=== PATIENT | female | born 1990 | race Caucasian/White ===

== ENCOUNTER 2017-09-28 22:23 | Emergency (ER) | payer OTHER ==
[~2017-09-28] VITALS: Ht 185.4 cm; Wt 74.8 kg
[~2017-09-28 22:23] MED LIST: ACET325 PO; ALBU90I INH; ALBU90OI INH; ALBU90OI6 INH; AMOX50SU PO; BC PATCH; BENADRYL PRN; BENZ100A PO; BIRTH CONTROL PATCH; CETI5 PO; CLOT1TC TOP; CODACEE120 PO; CODGUAEL PO; CRUTCH4 USE; CYCL10 PO; Cleocin HCl300 MG PO; DIPH50 PO; HYDACE5 PO; HYDHCL25 PO; IBUP800; IBUP800 PO; LORA10ER PO; NAPR500 PO; Norco 5-325 Ta1 EACH PO; ONDA8ODT MM; OXYACE5T; OXYACE5T PO; PENVK500 PO; PERM5TC TOP; PHENA100 PO; PRED10 PO; PRED20 PO; PROM25 PO; Prilosec20 MG PO; RXALBOI INH; RXPHEN200 PO; RXSULTRIDS PO; SULTRIDS PO; TRAM50 PO; Verotin-Gr Cap1 EACH; Verotin-Gr Cap1 EACH PO; Zithromax250 MG PO; Zofran8 MG PO
[2017-09-28 23:07] LABS: Source, Urine Clean Catch
[2017-09-28 23:14] LABS: Bilirubin, Urine Neg (Neg); Blood, Urine 5+ (Neg); Glucose Qualitative, Urine Neg (Neg); Ketones, Urine Neg (Neg); Leukocyte Esterase, Urine Neg (Neg); Nitrite, Urine Neg (Neg); Protein, Urine Neg (Neg); Specific Gravity, Urine 1.015 (1.003-1.022); Urobilinogen, Urine NORM (Normal)
[2017-09-29 00:27] LABS: Amorphous Mod (0-Heavy); Appearance, Urine Turbid (Clear); Bacteria Few /hpf; Color, Urine Yellow (P-Yellow); Mucus Mod (0-Heavy); Squamous Epithelial Cells Few /hpf (Few); White Blood Cells, Urine 0-2 /hpf (0-5)
[2017-09-29] MEDS ORDERED: Cyclobenzaprine5 MG PO (00:57)
[2017-09-29] MEDS ORDERED: Ultram50 MG PO (00:57)
== END 2017-09-29 01:48 | disposition home or self-care (01) ==
LOC: ER 22:23
PROVIDERS: Emergency Medicine
DX: M54.5 Low back pain (principal); Z88.6 Allergy status to analgesic agent; Z79.891 Long term (current) use of opiate analgesic; Z79.899 Other long term (current) drug therapy; J45.909 Unspecified asthma, uncomplicated; F17.200 Nicotine dependence, unspecified, uncomplicated
CPT/HCPCS: 74176; 81001; 81025; 99284

== ENCOUNTER 2019-01-26 23:56 | Emergency (ER) | payer OTHER ==
[~2019-01-26] VITALS: Ht 180.3 cm; Wt 77.1 kg
[~2019-01-26 23:56] MED LIST changes: +Cyclobenzaprine5 MG PO; +Ultram50 MG PO
[2019-01-27] MEDS ORDERED: Zithromax250 MG PO (03:29)
== END 2019-01-27 04:00 | disposition home or self-care (01) ==
LOC: ER 23:56
DX: R05 Cough (principal); F17.210 Nicotine dependence, cigarettes, uncomplicated
CPT/HCPCS: 81025; 94640

== ENCOUNTER → 2019-03-15 | Outpatient (CLI) | payer OTHER ==
[~2019-03-15] MED LIST changes: +Amoxicillin500 MG PO; +Cetirizine HCl10 MG PO; +PRENATAL VITAM1 EAC1 PO; +Ventolin/Prove6.7 GM INH
[2019-03-21 03:06] LABS: CHLAMYDIA BY NAA Negative (Negative); GONOCOCCUS BY NAA Negative (Negative); HPV 16 Negative (Negative); HPV 18 Negative (Negative); HPV OTHER HR TYPES Positive (Negative); TRICH VAG BY NAA Negative (Negative)
== END | disposition home or self-care (01) ==
LOC: LAB SHORT 14:02 → LAB 14:02
PROVIDERS: Obstetrics & Gynecology
DX: Z36.89 Encounter for other specified antenatal screening (principal)
CPT/HCPCS: 87491; 87591; 87624; 87625; 87661; G0123

== ENCOUNTER 2019-04-24 03:39 | Emergency (ER) | payer OTHER ==
[~2019-04-24] VITALS: Ht 177.8 cm; Wt 83.0 kg
[~2019-04-24 03:39] MED LIST changes: -Amoxicillin500 MG PO; -Cetirizine HCl10 MG PO; -PRENATAL VITAM1 EAC1 PO; -Ventolin/Prove6.7 GM INH
[2019-04-24 04:28] LABS: BASOPHILS ABSOLUTE AUTO 0.04 K/mm3 (0.00-0.23); BASOPHILS PERCENT AUTO 1 % (0-2); EOSINOPHILS ABSOLUTE AUTO 0.46 K/mm3 (0.00-0.68); EOSINOPHILS PERCENT AUTO 6 % (0-6); Hematocrit 38.9 % (33.0-51.0); Hemoglobin 12.9 g/dL (11.5-16.0); IMMATURE GRAN ABSOLUTE AUTO 0.03 K/mm3 (0.00-0.10); IMMATURE GRAN PERCENT AUTO 0 % (0-1); LYMPHOCYTES ABSOLUTE AUTO 3.05 K/mm3 (0.84-5.20); LYMPHOCYTES PERCENT AUTO 37 % (21-46); MONOCYTES ABSOLUTE AUTO 0.48 K/mm3 (0.16-1.47); MONOCYTES PERCENT AUTO 6 % (4-13); Mean Corpuscular HGB 28.9 pg (26.0-34.0); Mean Corpuscular HGB Conc 33.2 g/dL (31.5-36.5); Mean Corpuscular Volume 87 fL (80-100); Mean Platelet Volume 10.3 fL (9.1-12.4); NEUTROPHILS ABSOLUTE AUTO 4.21 K/mm3 (1.96-9.15); NEUTROPHILS PERCENT AUTO 51 % (41-73); Platelet Count 322 K/mm3 (150-400); RDW Coefficient Variation 13.7 % (11.7-14.2); RDW Standard Deviation 43.5 fL (35.1-46.3); Red Blood Cell Count 4.46 M/mm3 (3.80-5.20); White Blood Cell Count 8.27 K/mm3 (4.00-11.30)
[2019-04-24 04:44] LABS: Source, Urine Clean Catch
[2019-04-24 04:45] LABS: Alanine Aminotransfer (ALT/SGP 20 U/L (12-78); Albumin, Blood 2.9 g/dL (3.4-5.0); Albumin/Globulin Ratio 0.6 (0.8-1.8); Alk Phos 79 U/L (50-136); Anion Gap 9 mmol/L (6-16); Aspartate Aminotrans (AST/SGOT 19 U/L (12-37); Bilirubin, Total 0.1 mg/dL (0.1-1.0); Blood Urea Nitrogen 6 mg/dL (8-24); Bun/Creatinine Ratio 10.6 (12.0-20.0); CO2, Blood 22 mmol/L (21-32); Calcium, Blood 8.5 mg/dL (8.5-10.1); Chloride, Blood 107 mmol/L (98-108); Creatinine, Blood 0.57 mg/dL (0.40-1.00); Globulin, Blood 4.5 g/dL (2.2-4.0); Glomerular Filtration Rate >60 (60-); Glucose, Blood 84 mg/dL (70-99); Potassium, Blood 4.2 mmol/L (3.5-5.5); Sodium, Blood 138 mmol/L (136-145); Total Protein, Blood 7.4 g/dL (6.4-8.2)
[2019-04-24] MEDS ORDERED: Ventolin/Prove6.7 GM INH (04:46)
[2019-04-24] MEDS ORDERED: PRENATAL VITAM1 EAC1 PO (04:46)
[2019-04-24] MEDS ORDERED: Amoxicillin500 MG PO (04:46)
[2019-04-24] MEDS ORDERED: Cetirizine HCl10 MG PO (04:46)
[2019-04-24 04:48] LABS: Bilirubin, Urine Neg (Neg); Blood, Urine Neg (Neg); Glucose Qualitative, Urine Neg (Neg); Ketones, Urine 1+ (Neg); Leukocyte Esterase, Urine Neg (Neg); Nitrite, Urine Neg (Neg); Protein, Urine 2+ (Neg); Urobilinogen, Urine NORM (Normal)
[2019-04-24 05:02] LABS: Appearance, Urine Hazy (Clear); Bacteria Rare /hpf; Color, Urine Yellow (P-Yellow); Red Blood Cells, Urine Not Seen /hpf (0-2); Squamous Epithelial Cells Few /hpf (Few); White Blood Cells, Urine Rare /hpf (0-5)
[2019-04-24 05:03] LABS: Amorphous Light ({null, 0-Heavy}); Mucus Light ({null, 0-Heavy}); Uric Acid Crystals Many /hpf
== END 2019-04-24 05:54 | disposition home or self-care (01) ==
LOC: ER 03:39
PROVIDERS: Emergency Medicine
DX: O99.89 Other specified diseases and conditions complicating pregnancy, childbirth and the puerperium (principal); R10.84 Generalized abdominal pain; O99.332 Smoking (tobacco) complicating pregnancy, second trimester; F17.210 Nicotine dependence, cigarettes, uncomplicated; Z88.5 Allergy status to narcotic agent; Z79.899 Other long term (current) drug therapy; O99.512 Diseases of the respiratory system complicating pregnancy, second trimester; J45.909 Unspecified asthma, uncomplicated; Z3A.19 19 weeks gestation of pregnancy
CPT/HCPCS: 76816; 80053; 81001; 85025; 96360; 99284-25; J7030

== ENCOUNTER → 2019-09-01 | Outpatient (CLI) | payer OTHER ==
[~2019-09-01] MED LIST changes: +Amoxicillin500 MG PO; +Cetirizine HCl10 MG PO; +PRENATAL VITAM1 EAC1 PO; +SERT25 PO; +Ventolin/Prove6.7 GM INH
== END | disposition home or self-care (01) ==
LOC: LAB 10:55 → LAB SHORT 10:55
DX: Z34.93 Encounter for supervision of normal pregnancy, unspecified, third trimester (principal)
CPT/HCPCS: 87081; 87653

== ENCOUNTER 2019-09-19 20:19 | Inpatient (IN) | payer OTHER ==
[~2019-09-19] VITALS: Ht 180.3 cm; Wt 87.7 kg
[~2019-09-19 20:19] MED LIST changes: -SERT25 PO
[2019-09-19 20:52] LABS: BASOPHILS ABSOLUTE AUTO 0.03 K/mm3 (0.00-0.23); BASOPHILS PERCENT AUTO 0 % (0-2); EOSINOPHILS ABSOLUTE AUTO 0.23 K/mm3 (0.00-0.68); EOSINOPHILS PERCENT AUTO 3 % (0-6); Hematocrit 39.4 % (33.0-51.0); Hemoglobin 12.6 g/dL (11.5-16.0); IMMATURE GRAN ABSOLUTE AUTO 0.02 K/mm3 (0.00-0.10); IMMATURE GRAN PERCENT AUTO 0 % (0-1); LYMPHOCYTES ABSOLUTE AUTO 2.58 K/mm3 (0.84-5.20); LYMPHOCYTES PERCENT AUTO 38 % (21-46); MONOCYTES ABSOLUTE AUTO 0.57 K/mm3 (0.16-1.47); MONOCYTES PERCENT AUTO 8 % (4-13); Mean Corpuscular HGB 27.1 pg (26.0-34.0); Mean Corpuscular Volume 85 fL (80-100); Mean Platelet Volume 10.9 fL (9.1-12.4); NEUTROPHILS ABSOLUTE AUTO 3.44 K/mm3 (1.96-9.15); NEUTROPHILS PERCENT AUTO 50 % (41-73); Platelet Count 294 K/mm3 (150-400); RDW Coefficient Variation 15.7 % (11.7-14.2); Red Blood Cell Count 4.65 M/mm3 (3.80-5.20); White Blood Cell Count 6.87 K/mm3 (4.00-11.30)
[2019-09-21 05:33] LABS: Hematocrit 36.1 % (33.0-51.0); Hemoglobin 11.4 g/dL (11.5-16.0); Mean Corpuscular HGB 26.6 pg (26.0-34.0); Mean Corpuscular HGB Conc 31.6 g/dL (31.5-36.5); Mean Corpuscular Volume 84 fL (80-100); Mean Platelet Volume 11.2 fL (9.1-12.4); Platelet Count 261 K/mm3 (150-400); RDW Coefficient Variation 15.6 % (11.7-14.2); RDW Standard Deviation 47.3 fL (35.1-46.3); Red Blood Cell Count 4.28 M/mm3 (3.80-5.20); White Blood Cell Count 12.03 K/mm3 (4.00-11.30)
[2019-09-21] MEDS ORDERED: IBUP800 (12:09)
[2019-09-21] MEDS ORDERED: SERT25 PO (12:10)
== END 2019-09-22 11:30 | disposition home or self-care (01) | DRG 807 ==
LOC: BC 20:19
PROVIDERS: ADMIT Obstetrics & Gynecology
PROC: 3E0P7VZ Introduction of Hormone into Female Reproductive, Via Natural or Artificial Opening (ICD-10-PCS; 2019-09-19)
PROC: 10E0XZZ Delivery of Products of Conception, External Approach (ICD-10-PCS; principal; 2019-09-20)
PROC: 10907ZC Drainage of Amniotic Fluid, Therapeutic from Products of Conception, Via Natural or Artificial Opening (ICD-10-PCS; 2019-09-20)
PROC: 3E033VJ Introduction of Other Hormone into Peripheral Vein, Percutaneous Approach (ICD-10-PCS; 2019-09-20)
PROC: 3E0R3BZ Introduction of Anesthetic Agent into Spinal Canal, Percutaneous Approach (ICD-10-PCS; 2019-09-20)
PROC: 3E0234Z Introduction of Serum, Toxoid and Vaccine into Muscle, Percutaneous Approach (ICD-10-PCS; 2019-09-22)
PROC: 3E0234Z Introduction of Serum, Toxoid and Vaccine into Muscle, Percutaneous Approach (ICD-10-PCS; 2019-09-22)
DX: O24.420 Gestational diabetes mellitus in childbirth, diet controlled (principal); Z37.0 Single live birth; Z3A.39 39 weeks gestation of pregnancy; Z86.59 Personal history of other mental and behavioral disorders; O99.334 Smoking (tobacco) complicating childbirth; F17.210 Nicotine dependence, cigarettes, uncomplicated; Z23 Encounter for immunization
CPT/HCPCS: 36415; 51702; 82947; 85025; 85027; 86900; 86901; 90471; 90686; 90707; A9270; J1200; J1885; J2001; J2210; J2590; J3010; J7030; J7120

== ENCOUNTER 2019-10-24 07:30 | Day surgery (SDC) | payer OTHER ==
[~2019-10-24] VITALS: Ht 175.3 cm; Wt 76.1 kg
[~2019-10-24 07:30] MED LIST changes: +PRENATAL PO; +SERT25 PO
--- NOTE | 2019-10-24 08:03 | NUR ---
History, Chart, Medications and Allergies reviewed before start of procedure. Patient confirms NPO status and agrees with scheduled surgery. Patient States Post-Procedure ride home has been arranged with her .
--- NOTE | 2019-10-24 08:04 | NUR ---
Faint exp. wheezes auscultated to RLL posterior.
--- NOTE | 2019-10-24 11:56 | NUR ---
RECEIVED PT VIA GURJORGE LUIS FROM PACU. VSS. PT GROOGY, AX0 X3. PT TOLERTING ORAL FLUIDS. AT BEDSIDE.
--- NOTE | 2019-10-24 12:11 | NUR ---
PT STATED "I FEEL LIKE I'M GOING TO FAINT." PT LAID BACK IN [facility]. PT STATED NASAL CANNULA WAS IRRITATING HER NOSE. NON REBREATHER APPLIED. O2 95%. PT RESTING WITH EYES CLOSED.
--- NOTE | 2019-10-24 14:14 | NUR ---
PT DRESSED, AMBULATED WITH NURSE ASSIST TO RESTROOM AND BACK. POSITIVE VOID. PT'S BROUGHT LUNCH AND PT IS SITTING IN BED EATING.
--- NOTE | 2019-10-24 14:14 | NUR ---
LATE ENTRY 1300 PT PUMPED WITH PUMP BROUGHT FROM FAMILY [employer]AC[facility]. PT TOLERATED WELL.
--- NOTE | 2019-10-24 14:37 | NUR ---
PT WITH C/O CHEST TIGHTNESS AND NOT BEING "ABLE TO TAKE A DEEP BREATH." CONSULTED DR. ABDI AND HE ORDERED 1 MG ATIVAN TO BE GIVEN IV NOW. PT TOLERATED WELL.
--- NOTE | 2019-10-24 14:42 | NUR ---
PT RESTING WITH EYES CLOSED. ROOM AIR 02 97%. AT BEDSIDE.
--- NOTE | 2019-10-24 15:30 | NUR ---
Discharge instructions reviewed with patient. Patient verbalizes understanding. Copy given to patient to take home. Discharged via wheelchair to private car for ride home. PT MEETS CRITERIA FOR DC.
== END 2019-10-24 15:23 | disposition home or self-care (01) ==
LOC: ORSCMMR 07:30 → ORD 09:00 → ORSCMMR 15:23
PROVIDERS: Obstetrics & Gynecology
PROC: 0UT74ZZ Resection of Bilateral Fallopian Tubes, Percutaneous Endoscopic Approach (ICD-10-PCS; principal; 2019-10-24 09:00)
DX: Z30.2 Encounter for sterilization (principal); F17.210 Nicotine dependence, cigarettes, uncomplicated; J45.909 Unspecified asthma, uncomplicated
CPT/HCPCS: 88302; J0330; J2060; J2250; J2405; J2704; J3010; J7120

== ENCOUNTER 2019-11-08 05:16 | Inpatient (IN) | payer OTHER ==
[~2019-11-08] VITALS: Ht 177.8 cm; Wt 79.2 kg
[2019-11-08 05:35] LABS: BASOPHILS ABSOLUTE AUTO 0.04 K/mm3 (0.00-0.23); BASOPHILS PERCENT AUTO 0 % (0-2); EOSINOPHILS ABSOLUTE AUTO 0.54 K/mm3 (0.00-0.68); EOSINOPHILS PERCENT AUTO 5 % (0-6); Hemoglobin 12.6 g/dL (11.5-16.0); IMMATURE GRAN ABSOLUTE AUTO 0.05 K/mm3 (0.00-0.10); IMMATURE GRAN PERCENT AUTO 1 % (0-1); LYMPHOCYTES ABSOLUTE AUTO 5.64 K/mm3 (0.84-5.20); LYMPHOCYTES PERCENT AUTO 52 % (21-46); MONOCYTES PERCENT AUTO 6 % (4-13); Mean Corpuscular HGB 27.5 pg (26.0-34.0); Mean Corpuscular HGB Conc 31.5 g/dL (31.5-36.5); Mean Platelet Volume 9.5 fL (9.1-12.4); NEUTROPHILS ABSOLUTE AUTO 3.91 K/mm3 (1.96-9.15); NEUTROPHILS PERCENT AUTO 36 % (41-73); Platelet Count 333 K/mm3 (150-400); RDW Standard Deviation 51.2 fL (35.1-46.3); Red Blood Cell Count 4.59 M/mm3 (3.80-5.20); White Blood Cell Count 10.78 K/mm3 (4.00-11.30)
[2019-11-08 05:38] LABS: PCO2 Arterial 80.7 mmHg (35-45); PO2 Arterial 280 mmHg (80-100)
[2019-11-08 05:39] LABS: Mean Corpuscular Volume 87 fL (80-100)
[2019-11-08 05:51] LABS: Alanine Aminotransfer (ALT/SGP 20 U/L (12-78); Albumin, Blood 2.9 g/dL (3.4-5.0); Anion Gap 5 mmol/L (6-16); Aspartate Aminotrans (AST/SGOT 23 U/L (12-37); Bilirubin, Total 0.1 mg/dL (0.1-1.0); Blood Urea Nitrogen 14 mg/dL (8-24); Bun/Creatinine Ratio 16.1 (12.0-20.0); CO2, Blood 27 mmol/L (21-32); Calcium, Blood 7.7 mg/dL (8.5-10.1); Chloride, Blood 111 mmol/L (98-108); Creatinine, Blood 0.87 mg/dL (0.40-1.00); Glomerular Filtration Rate >60 (60-); Glucose, Blood 210 mg/dL (70-99); Potassium, Blood 4.4 mmol/L (3.5-5.5); Sodium, Blood 143 mmol/L (136-145)
[2019-11-08 05:55] LABS: Albumin/Globulin Ratio 0.8 (0.8-1.8); Alk Phos 126 U/L (50-136); Globulin, Blood 3.5 g/dL (2.2-4.0); Total Protein, Blood 6.4 g/dL (6.4-8.2); Troponin I <0.015 ng/mL (0.000-0.040)
[2019-11-08 07:01] LABS: Source, Urine Catheter
[2019-11-08 07:03] LABS: Appearance, Urine Clear (Clear); Bilirubin, Urine Neg (Neg); Blood, Urine Neg (Neg); Color, Urine Yellow (P-Yellow); Glucose Qualitative, Urine Neg (Neg); Ketones, Urine Neg (Neg); Leukocyte Esterase, Urine Neg (Neg); Nitrite, Urine Neg (Neg); Protein, Urine 2+ (Neg); Specific Gravity, Urine 1.025 (1.003-1.022); Urobilinogen, Urine NORM (Normal)
[2019-11-08 07:12] LABS: Red Blood Cells, Urine 0-2 /hpf (0-2); Squamous Epithelial Cells Not Seen /hpf (Few); White Blood Cells, Urine 0-2 /hpf (0-5)
[2019-11-08 07:13] LABS: Amorphous Mod (0-Heavy); Bacteria Mod /hpf
--- NOTE | 2019-11-08 09:11 | NUR ---
Received report from Sher RN. Patient arrived via gurney and on vent with 6.0 ET done in the field and 25cm at lips with settings AC 20, TV 400, FiO2 45% and now 25% Peep 5.0 and sats upper 90%'s. She has 18ga RFA dressing intact and site WNL's and is infusing Propofol 40 mcg/kg/min. She also has 20ga LAC dressing intact and site WNLK flushed and SL'd. She has 14Fr Soto draining to gravity clear yellow urine. She had small amount liquid stool on sheet when arrived and cleaned her up. She has had child in September and had spouse go home and bring her pump in and called family to have assessed as family stated she wanted to contiunue to breast feed after discharge. Talked with spouse and updated on plan.
--- NOTE | 2019-11-08 10:53 | NUR ---
Patient remains sedated on vent, she has been decreased to 25% and sats low to mid 90%'s. Lungs sounds are clear and do not sound tight anymore. She has occassional stacking of breaths with care and movement , but settles shortly after. VSS see EMR. Dr Ferris consulted.
[2019-11-08 11:16] LABS: Adenovirus Not Detected (NOT DETECT); Coronavirus 229E Not Detected (NOT DETECT); Coronavirus HKU1 Detected (NOT DETECT); Coronavirus NL63 Not Detected (NOT DETECT)
[2019-11-08 11:17] LABS: Bordetella pertussis Not Detected (NOT DETECT); Chlamydophila pneumoniae Not Detected (NOT DETECT); Coronavirus OC43 Not Detected (NOT DETECT); Human Metapneumovirus Not Detected (NOT DETECT); Human Rhinovirus/Enterovirus Not Detected (NOT DETECT); Influenza A Not Detected (NOT DETECT); Influenza A/2009-H1 Not Detected (NOT DETECT); Influenza A/H1 Not Detected (NOT DETECT); Influenza A/H3 Not Detected (NOT DETECT); Influenza B Not Detected (NOT DETECT); Mycoplasma pneumoniae Not Detected (NOT DETECT); Parainfluenza Virus 1 Not Detected (NOT DETECT); Parainfluenza Virus 2 Not Detected (NOT DETECT); Parainfluenza Virus 3 Not Detected (NOT DETECT); Parainfluenza Virus 4 Not Detected (NOT DETECT); Respiratory Syncytial Virus Not Detected (NOT DETECT)
--- NOTE | 2019-11-08 12:10 | NUR ---
Patient opens eyes to calling her name. Dr Ferris reduced AC to 12 and sats increased to 92-97%, and notified RT, VSS see EMR and no other significant changes. Awaiting to bring breast pump for patient and will notify family Place.
--- NOTE | 2019-11-08 14:43 | NUR ---
Patient doing well on AC 12, TV400, FiO2 25% and peep 5.0 with sats mid 90's. ABG in an hour. Mother came by and spouse brought breast pump and mother pumped both sides. VSS see EMR. Restraints remains in place and releasewd briefly for circulation and skin check and reapplied. She opens eye with verbal cues.
[2019-11-08 14:45] LABS: PCO2 Arterial 38.9 mmHg (35-45); pH Blood Arterial 7.35 (7.35-7.45)
--- NOTE | 2019-11-08 16:58 | NUR ---
INTUBATED IN ICU. WARD SECRETARY INSTRUCTED IN PUMP PROTOCOL TO MAINTAIN MILK SUPPLY, PUMPING EVERY 2-3 HOURS FOR 20 MIN. WARD SECRETARY INSTRUCTED ON HOW TO CLEAN PUMP AND HOW TO PUT PUMP PARTS TOGETHER.
--- NOTE | 2019-11-08 18:10 | NUR ---
Patient awaoke at 1600 and tried to extubate self and was not following directions and increased Propofl to 50 Mcg/kg/min and sedated well. She continues to raise eye brws when calling her name. [facility] [place] lactate RN's came up and cleaned her equipment and changed bottles and suction cups. They stated to wash her breast pump equipment in supplied dish washing soap and dry. She needs to be pumped every three hours. They were able to get three ounces total from both breasts and was disgarded. patient has been restinging comfortably.
--- NOTE | 2019-11-08 18:13 | NUR ---
No family present at time of visit. Pt unable to participate in conversation. Per admit trigger, I was tasked with providing ACP information to pt. Left information on bedside table and will remain available to pt and family.
[2019-11-08 19:38] LABS: Source, Urine Catheter
[2019-11-08 19:41] LABS: Bilirubin, Urine Neg (Neg); Blood, Urine 3+ (Neg); Glucose Qualitative, Urine Neg (Neg); Ketones, Urine Neg (Neg); Leukocyte Esterase, Urine Neg (Neg); Nitrite, Urine Neg (Neg); Protein, Urine Neg (Neg); Urobilinogen, Urine NORM (Normal)
[2019-11-08 19:50] LABS: Color, Urine Pale Yellow (P-Yellow)
[2019-11-08 19:53] LABS: Appearance, Urine Clear (Clear); Bacteria Rare /hpf; Squamous Epithelial Cells Rare /hpf (Few); White Blood Cells, Urine 0-2 /hpf (0-5)
[2019-11-08 19:54] LABS: Uric Acid Crystals Few /hpf
--- NOTE | 2019-11-08 20:39 | NUR ---
ASSUMED CARE OF PT AT 1900. PT EASILY ROUSABLE ON VENT, SETTINGS 12RR/ 400 TV/ PEEP 5/ 25% FIO2. PUMPED PT FOR 40ML BREAST MILK WITH OFFGOING ALYSSA MAYES. BEDSIDE REPORT GIVEN AT SAME TIME. I-TRACE PERFORMED. U/A RETRIEVED AND SENT AT SAME TIME.
[2019-11-09 03:31] LABS: BASOPHILS ABSOLUTE AUTO 0.01 K/mm3 (0.00-0.23); BASOPHILS PERCENT AUTO 0 % (0-2); EOSINOPHILS PERCENT AUTO 0 % (0-6); Hematocrit 35.5 % (33.0-51.0); Hemoglobin 11.4 g/dL (11.5-16.0); IMMATURE GRAN ABSOLUTE AUTO 0.02 K/mm3 (0.00-0.10); IMMATURE GRAN PERCENT AUTO 0 % (0-1); LYMPHOCYTES ABSOLUTE AUTO 0.94 K/mm3 (0.84-5.20); LYMPHOCYTES PERCENT AUTO 11 % (21-46); MONOCYTES ABSOLUTE AUTO 0.15 K/mm3 (0.16-1.47); MONOCYTES PERCENT AUTO 2 % (4-13); Mean Corpuscular HGB Conc 32.1 g/dL (31.5-36.5); Mean Corpuscular Volume 84 fL (80-100); Mean Platelet Volume 9.6 fL (9.1-12.4); NEUTROPHILS ABSOLUTE AUTO 7.74 K/mm3 (1.96-9.15); NEUTROPHILS PERCENT AUTO 87 % (41-73); Platelet Count 273 K/mm3 (150-400); RDW Coefficient Variation 16.8 % (11.7-14.2); RDW Standard Deviation 51.5 fL (35.1-46.3); Red Blood Cell Count 4.23 M/mm3 (3.80-5.20); White Blood Cell Count 8.86 K/mm3 (4.00-11.30)
[2019-11-09 03:51] LABS: Alanine Aminotransfer (ALT/SGP 18 U/L (12-78); Albumin/Globulin Ratio 0.9 (0.8-1.8); Alk Phos 116 U/L (50-136); Anion Gap 5 mmol/L (6-16); Aspartate Aminotrans (AST/SGOT 18 U/L (12-37); Bilirubin, Total 0.3 mg/dL (0.1-1.0); Blood Urea Nitrogen 15 mg/dL (8-24); Bun/Creatinine Ratio 21.8 (12.0-20.0); CO2, Blood 24 mmol/L (21-32); Calcium, Blood 8.1 mg/dL (8.5-10.1); Chloride, Blood 112 mmol/L (98-108); Creatinine, Blood 0.69 mg/dL (0.40-1.00); Globulin, Blood 3.3 g/dL (2.2-4.0); Glomerular Filtration Rate >60 (60-); Glucose, Blood 142 mg/dL (70-99); Magnesium, Blood 2.1 mg/dL (1.6-2.4); Phosphorus, Blood 3.4 mg/dL (2.5-4.9); Potassium, Blood 4.2 mmol/L (3.5-5.5); Sodium, Blood 141 mmol/L (136-145); Total Protein, Blood 6.3 g/dL (6.4-8.2)
--- NOTE | 2019-11-09 06:27 | NUR ---
PT BECAME RESTLESS WHENEVER SHE WAS TURNED OR HAD HER BREASTS PUMPED. PT WAS CHEWING ON HER ET TUBE. HER VENT SETTINGS ARE THE SAME BEGINNING SHIFT, AC 12 RR/ 400 TV/ PEEP 5/ 25% FIO2. PT HAD TRANSITORY WHEEZE IN LUNGS, THAT WERE GONE A FEW MINUTES LATER. AT THAT TIME, HER O2 SAT DROPPED TO 90%, THEN RECOVERED.
--- NOTE | 2019-11-09 07:30 | NUR ---
Received report from Mary Grace MAYES. Patient HOB at 30 degrees and intubated with 6.0 ET and 26 cm at lips and vent settings AC 12, TV 400, FiO2 30%, PEEP 5.0 and sats mid 90%'s. She is sedated on 70mcg/kg/min of Propofol as it was increased when she awoke and tried to extubate herself on Noc shift. She has 18ga IV RFA dressing intact and site WNL's and is infusing Propofol and NS at 50ml/hr. She has OG in place with Vital High Protien at 10ml/hr with 30ml/hr water flushes. She has been have breast pumping q3 and just finished left 1.5 oz and right 2 oz.
--- NOTE | 2019-11-09 09:30 | NUR ---
Patient extubated at 0920 while on 30 mcg/kg/min as to not set her off for another attack and she did well and after extubation Propofol was turned off and she slowly awoke. We placed her on 6L NC and sats low 90%'s. She has 14Fr Folet draining cloudy yellow urine to gravity. She has great cough and able to clear secretions.
--- NOTE | 2019-11-09 11:30 | NUR ---
Soto removed and sluids stopped as she is having oral intake. Her HR since extubation 130-150's and Dr Ferris notified. She still has residual affects from sedations and she remains a little word salad when talking. Family has been in and out of room all morning. Dr De Luna has been in and taked with patient and ordered her regular diet. patient assisted with breast pumping 2nd time and continues to get about 2 oz's from each breast.
--- NOTE | 2019-11-09 13:30 | NUR ---
Got patient up out of bed with one person assist to bathroom she was able to urinate since cordova removed. She is getting more alert and is able to communicate her needs. VSS See EMR. She tolerated luch 100% and is drinking fluids per request.
--- NOTE | 2019-11-09 15:44 | NUR ---
Patient has been sitting up in bed and has been on and off of phone for the last three hours and remains on 6L O2 via NC and sats low to mid 90%'s. She pumped at 1345 and mostly did by her self with minimal assistance and about same amount all breast milk has been thrown away as r/t meds that she has been on and has to wait 24 hours before retaining. She is trying to rest.
--- NOTE | 2019-11-09 18:43 | NUR ---
Patient has been PCU status and has been up with assist several times to urinate. We placed her back on IV fluids to help with increasing milk production and called to family place and got Mothers Milk Tea to help as well. She has been drinking but not her normal intake. She has been managing her breast pumping but get emotional when not getting enough. I called Kylah Higuera earlier as a recommendation from Dr De Luna and Dr Kylah Higuera stated to try Prozac and recieved order from Dr Ferris and started her on it. She has remained on 6L O2 via NC and sats low to mid 90%'s. She should go home tomorrow.
--- NOTE | 2019-11-09 21:20 | NUR ---
PT RESTING IN BED EATING DINNER BROUGHT IN BY FAMILY. PT IS A/O X4, USING CALL LIGHT APPROPRIATELY. PT IS PUMPING BREAST MILK. SHE IS ALMOST 2 MONTHS POST . ABLE TO PUMP BY HERSELF. PT IS TEARFUL AT TIMES DUE TO DECREASED MILK FLOW. SHE WAS ONLY ABLE TO GET 2 OZ WHERE SHE IS NORMALLY ABLE TO GET 4 OZ. PT IS DRINKING FLUID AND IS ON NS AT 100ML/HR TO TRY TO HELP. NO SIGN OF DISTRESS.
--- NOTE | 2019-11-10 06:03 | NUR ---
SUMMARY PT DID WELL THROUGH THE NIGHT. PUMPED Q 3HRS AND MILK PRODUCTION HAS IMPROVED. PT HAS BEEN GETTING UP TO BATHROOM WITHOUT ISSUE. C/O SORE ABS THIS AM AND REQUESTING IBUPROFEN. CALLED HOSPITALIST WHO GAVE ORDERS. NO SIGN OF DISTRESS THIS AM. CALL LIGHT IN REACH, AT BEDSIDE.
--- NOTE | 2019-11-10 08:00 | NUR ---
INITIAL ASSESSMENT PATIENT ALERT AND ORIENTED X 4, AFEBRILE. PATIENT ANXIOUS AT TIMES. PATIENT COOPERATIVE. PATIENT SBA TO TOILET. PATIENT DENIES PAIN. LUNG SOUNDS COARSE AND WHEEZY THROUGHOUT. PATIENT SATTING 90% AND GREATER ON 4 L NC. PATIENT SOB WITH EXERTION. PATIENT COUGHING UP LARGE AMOUNT OF THICK, YELLOW SPUTUM. PATIENT IN SR TO ST, HR 90S TO 120S. BP STABLE. PULSES STRONG. GI AND WNL. SCATTERED BRUISES NOTED T/O. IV FLUSHED AND SALINE LOCKED. BED LOW, CALL LIGHT IN REACH. WILL CONTINUE TO MONITOR PATIENT FREQUENTLY THROUGHOUT SHIFT.
--- NOTE | 2019-11-10 09:00 | NUR ---
DR. ADAMES INFORMED THAT PATIENT COUGHING UP LARGE AMOUNTS OF THICK, YELLOW SPUTUM THIS AM. INFORMED THAT PATIENT ON RA AT HOME AND THAT ON 4 L NC THIS AM. INFORMED THAT PATIENT WONDERING WHEN BREAST MILK WILL BE OKAY TO KEEP SINCE SHE WAS ON PROPOFOL DRIP WHEN INTUBATED. INFORMED THAT PATIENT REPORTED HAVING DIFFICULTY AT HOME BREATHING SINCE THE LAST TIME SHE WAS INTUBATED. INQUIRED ABOUT POSSIBLY FOLLOWING UP OUTPATIENT WITH ENT DOCTOR. NO ORDERS RECEIVED AT THIS TIME.
--- NOTE | 2019-11-10 10:36 | NUR ---
DR. MORRISON IN ROOM TO SEE PATIENT. UPDATED ON PATIENT STATUS. INFORMED THAT PATIENT ON 4 L NC THIS AM. INFORMED THAT PATIENT COUGHING UP LARGE AMOUNTS OF THICK, YELLOW SPUTUM THIS AM AFTER FLUTTER VALVE THERAPY. INFORMED THAT PATIENT SOB WITH EXERTION. INFORMED THAT PATIENT STATED SHE HAS HAD PROBLEMS WITH BREATHING AT HOME SINCE SHE WAS LAST INTUBATED AND THAT PATIENT DIFFICULT INTUBATION AND HAD TO HAVE 6.0 ETT. INQUIRED ABOUT ENT OUTPATIENT FOLLOW-UP BECAUSE OF THIS. NO ORDER RECEIVED THUS FAR.
--- NOTE | 2019-11-10 12:13 | NUR ---
PATIENT SATTING 90% AND GREATER ON RA, EVEN AFTER GETTING BACK FROM HAVING A HOT SHOWER. PATIENT STATES SHE IS BREATHING MUCH BETTER. TOOK PATIENT OUT IN WHEELCHAIR TO SIT IN SUN FOR 20 MINUTES.
--- NOTE | 2019-11-10 12:40 | NUR ---
PATIENT BACK FROM OUTSIDE TO SIT IN SUN. TOOK HER OUT IN WHEELCHAIR. REMAINS SATTING OVER 90% ON RA UPON RETURNING.
--- NOTE | 2019-11-10 13:00 | NUR ---
VSS. PATIENT HAS NO COMPLAINTS. PATIENT SATTING 90% AND GREATER ON RA. PATIENT REMAINS ST, HR IN LOW 100S. BP STABLE. PATIENT REMAINS COUGHING UP THICK, YELLOW SPUTUM BUT LESS THAN THIS AM. NO OTHER ACUTE CHANGES TO NOTE ON AT THIS TIME. WILL CONTINUE TO MONITOR.
--- NOTE | 2019-11-10 16:14 | NUR ---
SHIFT SUMMARY PATIENT REMAINED ALERT AND ORIENTED X 4, AFEBRILE. PATIENT ANXIOUS IN MORNING BUT HAS BEEN BETTER SINCE. PATIENT INDEPENDENT IN ROOM. PATIENT HAD COMPLAINT OF RIB PAIN OT FROM COUGHING; REPORTED RELIEF WITH PRN IBUPROFEN. PATIENT ON 4 L NC THIS AM. PATIENT HAS BEEN SATTING 90% AND GREATER ON RA SINCE. PATIENT COUGHING UP THICK, YELLOW SPUTUM. PATIENT HAS BEEN IN SR TO ST, HR 90S TO 120S. BP HAS REMAINED STABLE. PATIENT HAD LOOSE STOOLS THIS AM. PATIENT HAS BEEN TOLERATING REGULAR DIET WELL. WNL. NO CHANGE TO SKIN/ PATIENT HAS BEEN REPOSITIONING SELF IN BED. SPUTUM CULTURE SENT TO LAB. PATIENT HAD HOT SHOWER TODAY. PATIENT HAS BEEN PUMPING BREAST MILK THROUGHOUT DAY AND IT IS BEING STORED IN [facility] IN [facility]. NO COMPLAINTS AT THIS TIME. PATIENT IS BEING TRANSFERRED TO MEDICAL FLOOR, ROOM 358.
--- NOTE | 2019-11-10 16:38 | NUR ---
ICU TRANSFER- PT ARRIVED TO ROOM 358 VIA W/C AT 1620. PT UP INDEP IN ROOM. PT DENIES ANY COMPLAINTS. LS WITH FAINT EXP WHEEZE, MIN SOB WITH EXERTION, PT USING FLUTTER AT BEDSIDE AND REPORT THICK YELLOW SPUTUM, ON RA. PT REQUESTING TO GO OUTSIDE FOR FRESH AIR AND DENIES SMOKING. 18G TO [facility]-. PT ORIENTED TO ROOM AND CALL SYSTEM. CALL LIGHT IN REACH.
[2019-11-10] MEDS ORDERED: FENUGREEK500 MG PO (21:13)
--- NOTE | 2019-11-10 21:14 | NUR ---
HOME MEDS PT TAKING FENUGREEK DAILY AND DRINKING MOTHER'S MILK TEA TO ASSIST WITH HER MILK SUPPLY WHILE IN THE HOSPITAL. DR. FANG NOTIFIED THAT PT IS TAKING THESE SUPPLEMENTS. SHE STATES OK. NO ORDER IS NEEDED AND THAT PT CAN HAVE BOTH AT THE BEDSIDE.
--- NOTE | 2019-11-11 04:44 | NUR ---
SHIFT SUMMARY NO ACUTE CHANGES TO REPORT THIS SHIFT. PT HAS RESTED MOST OF THE NIGHT. NEW IV ESTABLISHED TO LEFT UPPER ARM THE PRIOR IV INFILTRATED. IV SOLUMDEROL CONTINUED PER ORDERS. PT CONTINUES TO HAVE HARSH PRODUCTIVE COUGH. SHE REPORTS THICK YELLOWISH SPUTUM. SHE HAS REMAINED INDEPENDENT IN THE ROOM. PT CONTINUES TO PUMP FREQUENTLY T/O SHIFT TO KEEP HER MILK SUPPLY UP. BREAST MILK CARRIED TO [facility] BY HAI ROBERTO. S/O AT BEDSIDE T/O THE NIGHT. BED IN LOWEST POSITION, CALL LIGHT WITHIN REACH. WILL CONTINUE TO MONITOR AND REPORT TO ONCOMING RN.
--- NOTE | 2019-11-11 19:19 | NUR ---
SHIFT SUMMARY- PT ALERT ORIENTED AND INDEPENDENT IN THE ROOM AND IN THE HALLS WITH A WC. PT HAS DENIED THE NEED FOR PAIN MEDICATION T/O THE DAY AND HAS RECIEVED SCHEDULED BREATHING Tx. PT IS POST 6 WEEKS, WITH HER PREVIOUS CHILD SHE "LOST HER MILK SUPPLY" AT AROUND 6 WEEKS POST . THIS IS CAUSING A LOT OF STRESS FOR THE PT AND SHE HAS CONVEYED THAT SHE REALY WANTS TO GO HOME TO HER BABY. PT IS TAKING MOTHERS MILK TEA AND FENUGREEK TO IMPROVE HER MILK SUPPLY AND SHE IS PUMPING SEMI REGULARLY, MILK IS BEING TAKEN TO [facility] BY THE FLOOR SUPERVISOR (IT CAN NOT BE TUBED) AND PICKED UP BY HER MOTHER, HER [id number] IS CARING FOR HER BABY. PT EMOTIONAL SERVICE ANIMAL (IN TRAINING) IS IN THE ROOM. PT STATED SHE CAN NOT HAVE HER CHILDREN AT THE HOSPITAL SO HER SERVICE ANIMAL, IN TRAINING, IS THE NEXT BEST THING. ANIMAL HAS BEEN WELL BEHAVED AND IS NOT DISRUPTIVE. PT STATED HER SPOUSE CAN TAKE THE ANIMAL HOME IF IT BECOMES DISRUPTIVE. PT WAS SWITCHED TO PO STEROIDS FROM IV. THE PLAN IS TO DISCHARGE HER TOMOROW IF SHE TOLLERATES NO LONGER RECIEVING IV STERIODS. PT IS ANXIOUS TO GO HOME BUT SEEMS BETTER SINCE HER ADRIAN ARRIVED.
--- NOTE | 2019-11-11 21:54 | NUR ---
PATIENT RESTING IN BED WITH DOG. FRIEND PRESENT IN ROOM. WENT OUTSIDE VIA W/C WITH FRIEND X 3 AND NOW STAYING IN ROOM FOR NIGHT. DENIES PAIN AND N/V. USING FLUTTER VALVE. CALL LIGHT IN REACH.
--- NOTE | 2019-11-12 03:47 | NUR ---
SHIFT SUMMARY PATIENT HAD NO ACUTE CHANGES OBSERVED. AXOX 4 AND INDEPENDENT IN ROOM AND USES W/C OUT IN THE [place] TO GO OUTSIDE. SERVICE ANIMAL STAYS WITH PATIENT. HX POST DEPRESSION. PATIENT REPORTS PUMPING MILK AND IS TAKEN TO [facility] BY [facility]NAGER [employer]. DENIES PAIN, SOB, AND N/V. VSS/AFEBRILE. RT IN FOR BREATHING TX. CALL LIGHT IN REACH. BED IN LOWEST POSITION. WILL CONTINUE TO MONITOR UNTIL DAY SHIFT NURSE ASSUMES CARE.
--- NOTE | 2019-11-12 11:55 | NUR ---
RECIEVED A CALL FROM DR KIRKPATRICK- JONES FRANK ADDED TO THE DISCHARGE MEDS. PT TO GO HOME ON PO ABX FOR 7 DAYS. OK FOR PT TO DISCHARGE NOW. HAS A NOTE FOR THE PT TO RETURN TO WORK.
[2019-11-12] MEDS ORDERED: LANOLIN397 GM TOP (12:17)
[2019-11-12] MEDS ORDERED: HIGH POTENCY P1 EACH PO (12:19)
[2019-11-12] MEDS ORDERED: CEPH500 PO (12:19)
[2019-11-12] MEDS ORDERED: Prozac20 MG PO (12:20)
--- NOTE | 2019-11-12 12:51 | NUR ---
ALL MEDS CALLED TO THE PHARMACY DR MCCLAIN 30 DAY FILL FOR PROZAC DOSE PT WAS RECIEVEING HERE IN PT.
--- NOTE | 2019-11-12 15:10 | NUR ---
DISCHARGE NOTE- PT WAS GIVEN VERBAL AND WRITTEN DISCHAGRE INSTRUCTIONS AND ACKNOWLEDGED UNDERSTANDING OF THEM. PT HAS BEEN AMBULATING AROUND THE HOSPITAL T/O THE SHIFT W/O DIFFICULTY OR SOB. PT PERSCRIPTIONS WERE CALLED IN TO [facility] PER PT REQUEST. SPOKE TO DR KIRKPATRICK ABOUT PT PROZAC 30 DAY SUPPLY FILL OK'D AND CALLED IN TO THE PHARMACY. PT DECLINED ESCORT AND WC AND WALKED OUT UNDER HER OWN POWER NOT S&S OF DYSPNEA, OR INCREASED WHEEZING NOTED AT THE TIME OF DISCHARGE. NO FURTHER QUESTIONS AT THE TIME OF DISCHARGE. PT PLACED ON A 7 DAY CORSE OF ABX FOR THE SPUTUM CULTURE THAT CAME BACK POSSITIVE FOR BACTERIA, (SEE SPUTUM CULTURE RESULT FOR MORE INFO). PT NAME PLACED ON A LIST FOR CARE MANAGEMENT TO SET UP APPOINTMENT PT HAS NO ESTABLISHED PCP.
== END 2019-11-12 12:50 | disposition home or self-care (01) | DRG 208 ==
LOC: ER 05:16 → ICUE 05:46 → ERHOLD 05:46 → ICUE 07:10 → MEDS 11-10 16:38 → ENPENDDIS 11-12 09:00 → MEDS 11-12 12:50
PROVIDERS: Emergency Medicine; Internal Medicine Critical Care Medicine; ADMIT Internal Medicine
PROC: 5A1935Z Respiratory Ventilation, Less than 24 Consecutive Hours (ICD-10-PCS; principal; 2019-11-08)
DX: J96.01 Acute respiratory failure with hypoxia (principal); J45.20 Mild intermittent asthma, uncomplicated; J20.8 Acute bronchitis due to other specified organisms; O99.345 Other mental disorders complicating the puerperium; F53.0 Postpartum depression; F17.210 Nicotine dependence, cigarettes, uncomplicated; B34.2 Coronavirus infection, unspecified; B95.3 Streptococcus pneumoniae as the cause of diseases classified elsewhere; J96.02 Acute respiratory failure with hypercapnia
CPT/HCPCS: 0099U; 31500; 31720; 36415; 36600; 51702; 71045; 80053; 81001; 82803; 82947; 83605; 83690; 83735; 84100; 84484; 85025; 87040; 87070; 87077; 87086; 87186; 87205; 90686; 94002; 94003; 94640; 94644; 94667; 94760; 96360-59; 96361-59; 96372-59; 96374-59; 96375-59; 99291-25; 99292; A9270-GY; C9113; J1644; J2060; J2704; J2920; J3010; J7030; J7512

== ENCOUNTER → 2019-11-16 | Outpatient (CLI) | payer OTHER ==
[~2019-11-16] MED LIST changes: +CEPH500 PO; +FENUGREEK500 MG PO; +HIGH POTENCY P1 EACH PO; +LANOLIN397 GM TOP; +Prozac20 MG PO
[2019-11-17 07:49] LABS: Candida species (DNA Probe) Negative (NEGATIVE); G. vaginalis (DNA Probe) Negative (NEGATIVE); T. vaginalis (DNA Probe) Negative (NEGATIVE)
== END | disposition home or self-care (01) ==
LOC: LAB SHORT 11:30 → LAB 11:30
PROVIDERS: Obstetrics & Gynecology
DX: N76.0 Acute vaginitis (principal)
CPT/HCPCS: 87070; 87186; 87205; 87480; 87510; 87660

== ENCOUNTER 2019-12-03 23:00 | Emergency (ER) | payer OTHER ==
[~2019-12-03] VITALS: Ht 180.3 cm; Wt 77.1 kg
[2019-12-04] MEDS ORDERED: Prednisone50 MG PO (01:05)
[2019-12-04] MEDS ORDERED: ALBU2.5V5 INH (01:05)
[2019-12-04] MEDS ORDERED: ALBU90OI INH (01:06)
== END 2019-12-04 01:30 | disposition home or self-care (01) ==
LOC: ER 23:00
DX: J45.901 Unspecified asthma with (acute) exacerbation (principal); F17.210 Nicotine dependence, cigarettes, uncomplicated; Z88.8 Allergy status to other drugs, medicaments and biological substances; Z88.5 Allergy status to narcotic agent; Z79.899 Other long term (current) drug therapy; Z79.51 Long term (current) use of inhaled steroids
CPT/HCPCS: 36415; 71045; 94640; 96374; 99283-25; J1100

== ENCOUNTER 2020-01-01 00:57 | Emergency (ER) | payer OTHER ==
[~2020-01-01] VITALS: Ht 180.3 cm; Wt 81.7 kg
[~2020-01-01 00:57] MED LIST changes: +ALBU2.5V5 INH; +Prednisone50 MG PO
[2020-01-01 01:37] LABS: Source, Urine Clean Catch
[2020-01-01 01:43] LABS: Appearance, Urine Clear (Clear); Bilirubin, Urine Neg (Neg); Blood, Urine Neg (Neg); Color, Urine Yellow (P-Yellow); Glucose Qualitative, Urine Neg (Neg); Ketones, Urine Neg (Neg); Leukocyte Esterase, Urine 1+ (Neg); Nitrite, Urine Neg (Neg); Protein, Urine Neg (Neg); Specific Gravity, Urine 1.015 (1.003-1.022); Urobilinogen, Urine NORM (Normal)
[2020-01-01 01:48] LABS: Bacteria Mod /hpf; Red Blood Cells, Urine 0-2 /hpf (0-2); Squamous Epithelial Cells Few /hpf (Few)
[2020-01-01 01:58] LABS: BASOPHILS ABSOLUTE AUTO 0.06 K/mm3 (0.00-0.23); BASOPHILS PERCENT AUTO 1 % (0-2); EOSINOPHILS ABSOLUTE AUTO 1.46 K/mm3 (0.00-0.68); EOSINOPHILS PERCENT AUTO 19 % (0-6); Hematocrit 41.2 % (33.0-51.0); IMMATURE GRAN ABSOLUTE AUTO 0.02 K/mm3 (0.00-0.10); IMMATURE GRAN PERCENT AUTO 0 % (0-1); LYMPHOCYTES ABSOLUTE AUTO 2.88 K/mm3 (0.84-5.20); LYMPHOCYTES PERCENT AUTO 38 % (21-46); MONOCYTES ABSOLUTE AUTO 0.39 K/mm3 (0.16-1.47); MONOCYTES PERCENT AUTO 5 % (4-13); Mean Corpuscular HGB 27.6 pg (26.0-34.0); Mean Corpuscular HGB Conc 31.6 g/dL (31.5-36.5); Mean Corpuscular Volume 88 fL (80-100); Mean Platelet Volume 9.7 fL (9.1-12.4); NEUTROPHILS PERCENT AUTO 37 % (41-73); NRBC ABSOLUTE 0.02 K/mm3 (0.00-0.02); NRBC Auto 0.3 /100 WBC (0.0-0.2); Platelet Count 256 K/mm3 (150-400); RDW Coefficient Variation 15.8 % (11.7-14.2); RDW Standard Deviation 51.5 fL (35.1-46.3); Red Blood Cell Count 4.71 M/mm3 (3.80-5.20); White Blood Cell Count 7.61 K/mm3 (4.00-11.30)
[2020-01-01 02:09] LABS: Alanine Aminotransfer (ALT/SGP 35 U/L (12-78); Albumin, Blood 3.6 g/dL (3.4-5.0); Albumin/Globulin Ratio 0.9 (0.8-1.8); Alk Phos 137 U/L (50-136); Anion Gap 5 mmol/L (6-16); Aspartate Aminotrans (AST/SGOT 23 U/L (12-37); Bilirubin, Total 0.2 mg/dL (0.1-1.0); Blood Urea Nitrogen 16 mg/dL (8-24); Bun/Creatinine Ratio 20.7 (12.0-20.0); CO2, Blood 27 mmol/L (21-32); Calcium, Blood 8.5 mg/dL (8.5-10.1); Chloride, Blood 108 mmol/L (98-108); Creatinine, Blood 0.77 mg/dL (0.40-1.00); Glomerular Filtration Rate >60 (60-); Glucose, Blood 99 mg/dL (70-99); Potassium, Blood 4.6 mmol/L (3.5-5.5); Sodium, Blood 140 mmol/L (136-145); Total Protein, Blood 7.6 g/dL (6.4-8.2)
== END 2020-01-01 02:23 | disposition home or self-care (01) ==
LOC: ER 00:57
PROVIDERS: Emergency Medicine
DX: R10.84 Generalized abdominal pain (principal); J45.909 Unspecified asthma, uncomplicated; F17.210 Nicotine dependence, cigarettes, uncomplicated; Z88.8 Allergy status to other drugs, medicaments and biological substances; Z88.5 Allergy status to narcotic agent; Z79.51 Long term (current) use of inhaled steroids
CPT/HCPCS: 36415; 80053; 81001; 81025; 83690; 85025; 87086; 99284

== ENCOUNTER 2020-01-15 21:33 | Emergency (ER) | payer OTHER ==
[~2020-01-15] VITALS: Ht 180.3 cm; Wt 72.6 kg
[2020-01-15 23:18] LABS: Source, Urine Clean Catch
[2020-01-15 23:20] LABS: Bilirubin, Urine Neg (Neg); Blood, Urine Neg (Neg); Glucose Qualitative, Urine Neg (Neg); Ketones, Urine Neg (Neg); Leukocyte Esterase, Urine 1+ (Neg); Nitrite, Urine Neg (Neg); Protein, Urine Neg (Neg); Specific Gravity, Urine 1.025 (1.003-1.022); Urobilinogen, Urine NORM (Normal)
[2020-01-15 23:21] LABS: Appearance, Urine Clear (Clear); Color, Urine Yellow (P-Yellow)
[2020-01-15 23:29] LABS: Bacteria Many /hpf; Red Blood Cells, Urine 0-2 /hpf (0-2); Squamous Epithelial Cells Mod /hpf (Few)
[2020-01-15 23:34] LABS: BASOPHILS ABSOLUTE AUTO 0.06 K/mm3 (0.00-0.23); BASOPHILS PERCENT AUTO 1 % (0-2); EOSINOPHILS ABSOLUTE AUTO 2.31 K/mm3 (0.00-0.68); EOSINOPHILS PERCENT AUTO 25 % (0-6); Hematocrit 40.2 % (33.0-51.0); Hemoglobin 12.7 g/dL (11.5-16.0); IMMATURE GRAN ABSOLUTE AUTO 0.02 K/mm3 (0.00-0.10); IMMATURE GRAN PERCENT AUTO 0 % (0-1); LYMPHOCYTES ABSOLUTE AUTO 3.48 K/mm3 (0.84-5.20); LYMPHOCYTES PERCENT AUTO 37 % (21-46); MONOCYTES ABSOLUTE AUTO 0.51 K/mm3 (0.16-1.47); MONOCYTES PERCENT AUTO 6 % (4-13); Mean Corpuscular HGB 28.2 pg (26.0-34.0); Mean Corpuscular HGB Conc 31.6 g/dL (31.5-36.5); Mean Corpuscular Volume 89 fL (80-100); Mean Platelet Volume 9.7 fL (9.1-12.4); NEUTROPHILS ABSOLUTE AUTO 2.92 K/mm3 (1.96-9.15); NEUTROPHILS PERCENT AUTO 32 % (41-73); Platelet Count 303 K/mm3 (150-400); RDW Coefficient Variation 14.6 % (11.7-14.2); RDW Standard Deviation 47.7 fL (35.1-46.3); Red Blood Cell Count 4.51 M/mm3 (3.80-5.20)
[2020-01-15 23:50] LABS: Alanine Aminotransfer (ALT/SGP 20 U/L (12-78); Albumin, Blood 3.4 g/dL (3.4-5.0); Albumin/Globulin Ratio 0.9 (0.8-1.8); Alk Phos 128 U/L (50-136); Anion Gap 6 mmol/L (6-16); Aspartate Aminotrans (AST/SGOT 17 U/L (12-37); Bilirubin, Total 0.1 mg/dL (0.1-1.0); Blood Urea Nitrogen 17 mg/dL (8-24); Bun/Creatinine Ratio 21.1 (12.0-20.0); CO2, Blood 28 mmol/L (21-32); Calcium, Blood 8.1 mg/dL (8.5-10.1); Chloride, Blood 108 mmol/L (98-108); Globulin, Blood 3.8 g/dL (2.2-4.0); Glomerular Filtration Rate >60 (60-); Glucose, Blood 97 mg/dL (70-99); Potassium, Blood 3.8 mmol/L (3.5-5.5); Sodium, Blood 142 mmol/L (136-145); Total Protein, Blood 7.2 g/dL (6.4-8.2)
== END 2020-01-16 00:43 | disposition home or self-care (01) ==
LOC: ER 21:33
PROVIDERS: Emergency Medicine
DX: K52.9 Noninfective gastroenteritis and colitis, unspecified (principal); F17.210 Nicotine dependence, cigarettes, uncomplicated; Z88.8 Allergy status to other drugs, medicaments and biological substances; Z88.5 Allergy status to narcotic agent
CPT/HCPCS: 36415; 74177; 80053; 81001; 81025; 83690; 85025; 87086; 99284-25; Q9967

== ENCOUNTER 2020-10-07 14:12 | Emergency (ER) | payer OTHER ==
[~2020-10-07] VITALS: Ht 170.2 cm; Wt 83.9 kg
[2020-10-07] MEDS ORDERED: Prednisone20 MG PO (15:41)
[2020-10-07] MEDS ORDERED: Pepcid40 MG PO (15:41)
[2020-10-07] MEDS ORDERED: ALLERCLEAR10 MG PO (15:41)
== END 2020-10-07 16:28 | disposition home or self-care (01) ==
LOC: ER 14:12
DX: T78.40XA Allergy, unspecified, initial encounter (principal); F17.210 Nicotine dependence, cigarettes, uncomplicated; Z88.5 Allergy status to narcotic agent; Z88.8 Allergy status to other drugs, medicaments and biological substances
CPT/HCPCS: 99283; A9270; J1100

== ENCOUNTER 2021-02-12 01:10 | Emergency (ER) | payer OTHER ==
[~2021-02-12] VITALS: Ht 185.4 cm; Wt 90.7 kg
[~2021-02-12 01:10] MED LIST changes: +ALLERCLEAR10 MG PO; +Pepcid40 MG PO; +Prednisone20 MG PO
[2021-02-12 01:40] LABS: BASOPHILS ABSOLUTE AUTO 0.06 K/mm3 (0.00-0.23); BASOPHILS PERCENT AUTO 1 % (0-2); EOSINOPHILS ABSOLUTE AUTO 0.66 K/mm3 (0.00-0.68); EOSINOPHILS PERCENT AUTO 8 % (0-6); Hematocrit 38.8 % (33.0-51.0); Hemoglobin 12.6 g/dL (11.5-16.0); IMMATURE GRAN ABSOLUTE AUTO 0.02 K/mm3 (0.00-0.10); IMMATURE GRAN PERCENT AUTO 0 % (0-1); LYMPHOCYTES ABSOLUTE AUTO 3.35 K/mm3 (0.84-5.20); LYMPHOCYTES PERCENT AUTO 38 % (21-46); MONOCYTES ABSOLUTE AUTO 0.61 K/mm3 (0.16-1.47); MONOCYTES PERCENT AUTO 7 % (4-13); Mean Corpuscular HGB 27.8 pg (26.0-34.0); Mean Corpuscular HGB Conc 32.5 g/dL (31.5-36.5); Mean Corpuscular Volume 86 fL (80-100); Mean Platelet Volume 9.4 fL (9.1-12.4); NEUTROPHILS ABSOLUTE AUTO 4.11 K/mm3 (1.96-9.15); NEUTROPHILS PERCENT AUTO 47 % (41-73); Platelet Count 334 K/mm3 (150-400); RDW Coefficient Variation 14.2 % (11.7-14.2); RDW Standard Deviation 44.2 fL (35.1-46.3); Red Blood Cell Count 4.54 M/mm3 (3.80-5.20); White Blood Cell Count 8.81 K/mm3 (4.00-11.30)
[2021-02-12] MEDS ORDERED: Ventolin/Prove6.7 GM (01:40)
[2021-02-12 02:04] LABS: Troponin I <0.015 ng/mL (0.000-0.040)
[2021-02-12 02:11] LABS: Alanine Aminotransfer (ALT/SGP 17 U/L (12-78); Albumin, Blood 3.8 g/dL (3.4-5.0); Alk Phos 106 U/L (50-136); Anion Gap 6 mmol/L (6-16); Aspartate Aminotrans (AST/SGOT 9 U/L (12-37); Bilirubin, Total <0.1 mg/dL (0.1-1.0); Blood Urea Nitrogen 12 mg/dL (8-24); CO2, Blood 26 mmol/L (21-32); Calcium, Blood 8.4 mg/dL (8.5-10.1); Chloride, Blood 106 mmol/L (98-108); Creatinine, Blood 0.86 mg/dL (0.40-1.00); Globulin, Blood 3.9 g/dL (2.2-4.0); Glomerular Filtration Rate >60 (60-); Glucose, Blood 116 mg/dL (70-99); Potassium, Blood 3.7 mmol/L (3.5-5.5); Sodium, Blood 138 mmol/L (136-145); Total Protein, Blood 7.7 g/dL (6.4-8.2)
[2021-02-12 02:35] LABS: Source, Urine Clean Catch
[2021-02-12 02:37] LABS: Bilirubin, Urine Neg (Neg); Blood, Urine Neg (Neg); Glucose Qualitative, Urine Neg (Neg); Ketones, Urine Neg (Neg); Leukocyte Esterase, Urine 1+ (Neg); Nitrite, Urine Neg (Neg); Protein, Urine Neg (Neg); Specific Gravity, Urine 1.015 (1.003-1.022); Urobilinogen, Urine NORM (Normal)
[2021-02-12 03:08] LABS: Appearance, Urine Cloudy (Clear); Color, Urine Yellow (P-Yellow)
[2021-02-12 03:09] LABS: Amorphous Heavy (0-Heavy); Bacteria Few /hpf; Red Blood Cells, Urine 0-2 /hpf (0-2); Squamous Epithelial Cells Few /hpf (Few)
[2021-02-12 03:19] LABS: SARS-Cov-2 (COVID-19) PCR, MMC NEGATIVE (NEGATIVE)
[2021-02-12] MEDS ORDERED: ALBU90OI INH (03:36)
[2021-02-12] MEDS ORDERED: Prednisone20 MG PO (03:36)
== END 2021-02-12 04:44 | disposition home or self-care (01) ==
LOC: ER 01:10
PROVIDERS: Emergency Medicine
DX: J45.901 Unspecified asthma with (acute) exacerbation (principal); F17.210 Nicotine dependence, cigarettes, uncomplicated; Z88.5 Allergy status to narcotic agent; Z88.8 Allergy status to other drugs, medicaments and biological substances; Z20.822 Contact with and (suspected) exposure to COVID-19; Z79.899 Other long term (current) drug therapy
CPT/HCPCS: 71045; 80053; 81001; 83605; 84484; 85025; 85379; 87086; 93005; 93010; 94644; 96374; 99284-25; J2930; U0004

== ENCOUNTER 2021-02-16 01:46 | Emergency (ER) | payer OTHER ==
[~2021-02-16] VITALS: Ht 180.3 cm; Wt 88.5 kg
[~2021-02-16 01:46] MED LIST changes: +Ventolin/Prove6.7 GM
[2021-02-16] MEDS ORDERED: Vistaril25 MG PO (03:36)
== END 2021-02-16 03:55 | disposition home or self-care (01) ==
LOC: ER 01:46
DX: F41.9 Anxiety disorder, unspecified (principal); R07.9 Chest pain, unspecified; Z79.52 Long term (current) use of systemic steroids; Z79.899 Other long term (current) drug therapy
CPT/HCPCS: 84484; 93005; 93010; 96374; 99285-25; J2060

== ENCOUNTER → 2021-02-20 | Outpatient (CLI) | payer OTHER ==
[~2021-02-20] MED LIST changes: +Vistaril25 MG PO
[2021-02-20 11:37] LABS: BASOPHILS ABSOLUTE AUTO 0.04 K/mm3 (0.00-0.23); BASOPHILS PERCENT AUTO 1 % (0-2); EOSINOPHILS ABSOLUTE AUTO 0.44 K/mm3 (0.00-0.68); EOSINOPHILS PERCENT AUTO 6 % (0-6); Hematocrit 38.8 % (33.0-51.0); Hemoglobin 12.6 g/dL (11.5-16.0); IMMATURE GRAN ABSOLUTE AUTO 0.03 K/mm3 (0.00-0.10); IMMATURE GRAN PERCENT AUTO 0 % (0-1); LYMPHOCYTES ABSOLUTE AUTO 2.48 K/mm3 (0.84-5.20); LYMPHOCYTES PERCENT AUTO 34 % (21-46); MONOCYTES ABSOLUTE AUTO 0.44 K/mm3 (0.16-1.47); MONOCYTES PERCENT AUTO 6 % (4-13); Mean Corpuscular HGB 27.3 pg (26.0-34.0); Mean Corpuscular HGB Conc 32.5 g/dL (31.5-36.5); Mean Corpuscular Volume 84 fL (80-100); Mean Platelet Volume 9.5 fL (9.1-12.4); NEUTROPHILS ABSOLUTE AUTO 3.96 K/mm3 (1.96-9.15); NEUTROPHILS PERCENT AUTO 54 % (41-73); Platelet Count 339 K/mm3 (150-400); RDW Coefficient Variation 14.4 % (11.7-14.2); RDW Standard Deviation 44.3 fL (35.1-46.3); Red Blood Cell Count 4.61 M/mm3 (3.80-5.20); White Blood Cell Count 7.39 K/mm3 (4.00-11.30)
[2021-02-20 11:44] LABS: Anion Gap 10 mmol/L (6-16); Blood Urea Nitrogen 9 mg/dL (8-24); Bun/Creatinine Ratio 8.7 (12.0-20.0); CO2, Blood 27 mmol/L (21-32); Chloride, Blood 104 mmol/L (98-108); Creatinine, Blood 1.04 mg/dL (0.40-1.00); Glomerular Filtration Rate >60 (60-); Glucose, Blood 130 mg/dL (70-99); Potassium, Blood 4.1 mmol/L (3.5-5.5); Sodium, Blood 141 mmol/L (136-145); Thyroid Stimulating Hormone 1.704 uIU/mL (0.360-4.800)
== END | disposition home or self-care (01) ==
LOC: LAB 11:08 → LAB SHORT 11:08
PROVIDERS: Physician Assistant Surgical
DX: R07.89 Other chest pain (principal); R53.83 Other fatigue
CPT/HCPCS: 80048; 84443; 85025; 85379

== ENCOUNTER 2021-04-09 01:30 | Emergency (ER) | payer OTHER ==
[~2021-04-09] VITALS: Ht 182.9 cm; Wt 89.4 kg
== END 2021-04-09 03:35 | disposition left against medical advice (07) ==
LOC: ER 01:30
DX: Z53.29 Procedure and treatment not carried out because of patient's decision for other reasons (principal)
CPT/HCPCS: 94640

== ENCOUNTER 2021-04-10 13:43 | Emergency (ER) | payer OTHER ==
[~2021-04-10] VITALS: Ht 182.9 cm; Wt 89.4 kg
[2021-04-10 14:23] LABS: BASOPHILS ABSOLUTE AUTO 0.05 K/mm3 (0.00-0.23); BASOPHILS PERCENT AUTO 1 % (0-2); EOSINOPHILS ABSOLUTE AUTO 0.56 K/mm3 (0.00-0.68); EOSINOPHILS PERCENT AUTO 8 % (0-6); Hematocrit 42.8 % (33.0-51.0); Hemoglobin 13.8 g/dL (11.5-16.0); IMMATURE GRAN ABSOLUTE AUTO 0.02 K/mm3 (0.00-0.10); IMMATURE GRAN PERCENT AUTO 0 % (0-1); LYMPHOCYTES ABSOLUTE AUTO 2.19 K/mm3 (0.84-5.20); LYMPHOCYTES PERCENT AUTO 31 % (21-46); MONOCYTES ABSOLUTE AUTO 0.37 K/mm3 (0.16-1.47); MONOCYTES PERCENT AUTO 5 % (4-13); Mean Corpuscular HGB 27.1 pg (26.0-34.0); Mean Corpuscular HGB Conc 32.2 g/dL (31.5-36.5); Mean Corpuscular Volume 84 fL (80-100); Mean Platelet Volume 9.5 fL (9.1-12.4); NEUTROPHILS PERCENT AUTO 55 % (41-73); Platelet Count 335 K/mm3 (150-400); RDW Coefficient Variation 14.9 % (11.7-14.2); Red Blood Cell Count 5.09 M/mm3 (3.80-5.20); White Blood Cell Count 7.09 K/mm3 (4.00-11.30)
[2021-04-10 14:49] LABS: Alanine Aminotransfer (ALT/SGP 19 U/L (12-78); Albumin, Blood 3.9 g/dL (3.4-5.0); Albumin/Globulin Ratio 0.9 (0.8-1.8); Alk Phos 108 U/L (50-136); Anion Gap 6 mmol/L (6-16); Aspartate Aminotrans (AST/SGOT 8 U/L (12-37); Bilirubin, Total 0.4 mg/dL (0.1-1.0); Blood Urea Nitrogen 11 mg/dL (8-24); Bun/Creatinine Ratio 11.5 (12.0-20.0); CO2, Blood 24 mmol/L (21-32); Calcium, Blood 9.1 mg/dL (8.5-10.1); Chloride, Blood 108 mmol/L (98-108); Creatinine, Blood 0.95 mg/dL (0.40-1.00); Globulin, Blood 4.3 g/dL (2.2-4.0); Glomerular Filtration Rate >60 (60-); Glucose, Blood 106 mg/dL (70-99); Potassium, Blood 4.3 mmol/L (3.5-5.5); Sodium, Blood 138 mmol/L (136-145); Total Protein, Blood 8.2 g/dL (6.4-8.2); Troponin I <0.015 ng/mL (0.000-0.040)
== END 2021-04-10 17:35 | disposition home or self-care (01) ==
LOC: ER 13:43
PROVIDERS: Physician Assistant
DX: J45.901 Unspecified asthma with (acute) exacerbation (principal); F17.210 Nicotine dependence, cigarettes, uncomplicated; Z88.2 Allergy status to sulfonamides; Z88.5 Allergy status to narcotic agent
CPT/HCPCS: 36415; 71046; 80053; 83690; 84484; 85025; 93005; 93010; 99284-25

== ENCOUNTER 2021-05-05 00:31 | Emergency (ER) | payer OTHER ==
[~2021-05-05] VITALS: Ht 180.3 cm; Wt 89.4 kg
[2021-05-05] MEDS ORDERED: BUPROPION XL150 M1 PO (01:11)
[2021-05-05] MEDS ORDERED: Atarax10 MG PO (01:12)
[2021-05-05] MEDS ORDERED: LORA10ER PO (01:13)
[2021-05-05] MEDS ORDERED: FLUTICASONE-SA1 EA10 INH (01:13)
== END 2021-05-05 01:22 | disposition home or self-care (01) ==
LOC: ER 00:31
DX: F41.9 Anxiety disorder, unspecified (principal); R00.2 Palpitations; J45.909 Unspecified asthma, uncomplicated; F17.210 Nicotine dependence, cigarettes, uncomplicated; Z88.8 Allergy status to other drugs, medicaments and biological substances; Z88.5 Allergy status to narcotic agent
CPT/HCPCS: 93005; 93010; 99283-25

== ENCOUNTER 2021-07-07 16:25 | Emergency (ER) | payer OTHER ==
[~2021-07-07] VITALS: Ht 182.9 cm; Wt 90.7 kg
[~2021-07-07 16:25] MED LIST changes: +Atarax10 MG PO; +BUPROPION XL150 M1 PO; +FLUTICASONE-SA1 EA10 INH
== END 2021-07-07 18:00 | disposition home or self-care (01) ==
LOC: ER 16:25
DX: J02.9 Acute pharyngitis, unspecified (principal); Z20.822 Contact with and (suspected) exposure to COVID-19; Z88.8 Allergy status to other drugs, medicaments and biological substances; Z79.899 Other long term (current) drug therapy; J45.909 Unspecified asthma, uncomplicated; F17.210 Nicotine dependence, cigarettes, uncomplicated
CPT/HCPCS: 87430; 99284

== ENCOUNTER 2021-10-03 22:25 | Emergency (ER) | payer OTHER ==
[~2021-10-03] VITALS: Ht 180.3 cm; Wt 90.7 kg
== END 2021-10-03 23:00 | disposition home or self-care (01) ==
LOC: ER 22:25
DX: U07.1 COVID-19 (principal); Z87.891 Personal history of nicotine dependence
CPT/HCPCS: 99283

== ENCOUNTER 2021-11-13 16:03 | Emergency (ER) | payer OTHER ==
[~2021-11-13] VITALS: Ht 180.3 cm; Wt 90.7 kg
[2021-11-13 16:30] LABS: BASOPHILS ABSOLUTE AUTO 0.04 K/mm3 (0.00-0.23); BASOPHILS PERCENT AUTO 1 % (0-2); EOSINOPHILS ABSOLUTE AUTO 1.18 K/mm3 (0.00-0.68); EOSINOPHILS PERCENT AUTO 15 % (0-6); Hematocrit 38.5 % (33.0-51.0); Hemoglobin 12.3 g/dL (11.5-16.0); IMMATURE GRAN ABSOLUTE AUTO 0.02 K/mm3 (0.00-0.10); IMMATURE GRAN PERCENT AUTO 0 % (0-1); LYMPHOCYTES ABSOLUTE AUTO 2.39 K/mm3 (0.84-5.20); LYMPHOCYTES PERCENT AUTO 30 % (21-46); MONOCYTES ABSOLUTE AUTO 0.54 K/mm3 (0.16-1.47); MONOCYTES PERCENT AUTO 7 % (4-13); Mean Corpuscular HGB 26.6 pg (26.0-34.0); Mean Corpuscular HGB Conc 31.9 g/dL (31.5-36.5); Mean Corpuscular Volume 83 fL (80-100); Mean Platelet Volume 9.4 fL (9.1-12.4); NEUTROPHILS PERCENT AUTO 48 % (41-73); Platelet Count 350 K/mm3 (150-400); RDW Coefficient Variation 14.8 % (11.7-14.2); RDW Standard Deviation 45.1 fL (35.1-46.3); Red Blood Cell Count 4.63 M/mm3 (3.80-5.20); White Blood Cell Count 8.07 K/mm3 (4.00-11.30)
[2021-11-13 16:33] LABS: Source, Urine Clean Catch
[2021-11-13 16:42] LABS: Appearance, Urine Clear (Clear); Bilirubin, Urine Neg (Neg); Blood, Urine Neg (Neg); Color, Urine Yellow (P-Yellow); Glucose Qualitative, Urine Neg (Neg); Ketones, Urine Neg (Neg); Leukocyte Esterase, Urine Neg (Neg); Nitrite, Urine Neg (Neg); Protein, Urine Neg (Neg); Urobilinogen, Urine NORM (Normal)
[2021-11-13 16:48] LABS: Alanine Aminotransfer (ALT/SGP 17 U/L (12-78); Albumin, Blood 3.6 g/dL (3.4-5.0); Albumin/Globulin Ratio 0.8 (0.8-1.8); Alk Phos 110 U/L (50-136); Anion Gap 4 mmol/L (6-16); Aspartate Aminotrans (AST/SGOT 12 U/L (12-37); Bilirubin, Total 0.2 mg/dL (0.1-1.0); Blood Urea Nitrogen 11 mg/dL (8-24); Bun/Creatinine Ratio 11.9 (12.0-20.0); CO2, Blood 26 mmol/L (21-32); Calcium, Blood 8.7 mg/dL (8.5-10.1); Chloride, Blood 108 mmol/L (98-108); Creatinine, Blood 0.92 mg/dL (0.40-1.00); Globulin, Blood 4.3 g/dL (2.2-4.0); Glomerular Filtration Rate >60 (60-); Glucose, Blood 102 mg/dL (70-99); Sodium, Blood 138 mmol/L (136-145); Total Protein, Blood 7.9 g/dL (6.4-8.2)
[2021-11-13] MEDS ORDERED: ONDA4ODT MM (19:25)
== END 2021-11-13 19:31 | disposition home or self-care (01) ==
LOC: ER 16:03
PROVIDERS: Physician Assistant
DX: K52.9 Noninfective gastroenteritis and colitis, unspecified (principal); K80.20 Calculus of gallbladder without cholecystitis without obstruction; J45.909 Unspecified asthma, uncomplicated; Z88.5 Allergy status to narcotic agent; Z88.8 Allergy status to other drugs, medicaments and biological substances; Z87.891 Personal history of nicotine dependence
CPT/HCPCS: 74177; 80053; 81003; 81025; 83690; 85025; 96374; 96375; 99284-25; J1885; J2405; J7030; Q9967

== ENCOUNTER 2022-02-14 02:03 | Emergency (ER) | payer OTHER ==
[~2022-02-14] VITALS: Ht 177.8 cm; Wt 90.7 kg
[~2022-02-14 02:03] MED LIST changes: +Bactrim Ds Tab1 EACH PO; +ONDA4ODT MM
[2022-02-14 03:56] LABS: BASOPHILS ABSOLUTE AUTO 0.04 K/mm3 (0.00-0.23); BASOPHILS PERCENT AUTO 1 % (0-2); EOSINOPHILS PERCENT AUTO 6 % (0-6); Hematocrit 35.2 % (33.0-51.0); Hemoglobin 11.2 g/dL (11.5-16.0); IMMATURE GRAN ABSOLUTE AUTO 0.02 K/mm3 (0.00-0.10); IMMATURE GRAN PERCENT AUTO 0 % (0-1); LYMPHOCYTES PERCENT AUTO 37 % (21-46); MONOCYTES ABSOLUTE AUTO 0.61 K/mm3 (0.16-1.47); MONOCYTES PERCENT AUTO 8 % (4-13); Mean Corpuscular HGB 26.2 pg (26.0-34.0); Mean Corpuscular HGB Conc 31.8 g/dL (31.5-36.5); Mean Corpuscular Volume 82 fL (80-100); Mean Platelet Volume 9.3 fL (9.1-12.4); NEUTROPHILS ABSOLUTE AUTO 3.97 K/mm3 (1.96-9.15); NEUTROPHILS PERCENT AUTO 49 % (41-73); Platelet Count 362 K/mm3 (150-400); RDW Coefficient Variation 14.1 % (11.7-14.2); RDW Standard Deviation 42.1 fL (35.1-46.3); Red Blood Cell Count 4.27 M/mm3 (3.80-5.20); White Blood Cell Count 8.14 K/mm3 (4.00-11.30)
[2022-02-14 04:17] LABS: Albumin, Blood 3.5 g/dL (3.4-5.0); Albumin/Globulin Ratio 0.9 (0.8-1.8); Bilirubin, Total 0.1 mg/dL (0.1-1.0); Bun/Creatinine Ratio 14.8 (12.0-20.0); C-REACTIVE PROTEIN, EXT RANGE 1.64 mg/dL (0.000-0.300); Calcium, Blood 8.6 mg/dL (8.5-10.1); Creatinine, Blood 0.95 mg/dL (0.40-1.00); Magnesium, Blood 2.4 mg/dL (1.6-2.4); Potassium, Blood 4.2 mmol/L (3.5-5.5); Total Protein, Blood 7.5 g/dL (6.4-8.2)
[2022-02-14] MEDS ORDERED: AMOCLA875 PO (06:17)
[2022-02-14] MEDS ORDERED: PROM25 PO (06:17)
== END 2022-02-14 06:23 | disposition home or self-care (01) ==
LOC: ER 02:03
PROVIDERS: Student in an Organized Health Care Education/Training Program
DX: K08.89 Other specified disorders of teeth and supporting structures (principal); R22.0 Localized swelling, mass and lump, head; Z98.890 Other specified postprocedural states; J45.909 Unspecified asthma, uncomplicated; Z79.899 Other long term (current) drug therapy; Z88.5 Allergy status to narcotic agent; Z88.8 Allergy status to other drugs, medicaments and biological substances; Z87.891 Personal history of nicotine dependence
CPT/HCPCS: 36415; 70491; 80053; 83735; 85025; 85651; 86140; 96374; 96375; 99283-25; J1100; J1885; Q9967

== ENCOUNTER 2022-06-07 21:44 | Emergency (ER) | payer OTHER ==
[~2022-06-07] VITALS: Ht 177.8 cm; Wt 90.7 kg
[~2022-06-07 21:44] MED LIST changes: +AMOCLA875 PO
[2022-06-07 22:42] LABS: Albumin, Blood 3.3 g/dL (3.4-5.0); Albumin/Globulin Ratio 0.8 (0.8-1.8); Bilirubin, Total 0.2 mg/dL (0.1-1.0); Bun/Creatinine Ratio 12.1 (12.0-20.0); Calcium, Blood 8.7 mg/dL (8.5-10.1); Creatinine, Blood 0.91 mg/dL (0.40-1.00); Globulin, Blood 4.1 g/dL (2.2-4.0); Potassium, Blood 3.9 mmol/L (3.5-5.5); Total Protein, Blood 7.4 g/dL (6.4-8.2)
[2022-06-07 22:48] LABS: BASOPHILS ABSOLUTE AUTO 0.06 K/mm3 (0.00-0.23); BASOPHILS PERCENT AUTO 1 % (0-2); EOSINOPHILS ABSOLUTE AUTO 0.54 K/mm3 (0.00-0.68); EOSINOPHILS PERCENT AUTO 6 % (0-6); Hematocrit 39.3 % (33.0-51.0); Hemoglobin 12.3 g/dL (11.5-16.0); IMMATURE GRAN ABSOLUTE AUTO 0.03 K/mm3 (0.00-0.10); IMMATURE GRAN PERCENT AUTO 0 % (0-1); LYMPHOCYTES ABSOLUTE AUTO 3.32 K/mm3 (0.84-5.20); LYMPHOCYTES PERCENT AUTO 37 % (21-46); MONOCYTES ABSOLUTE AUTO 0.46 K/mm3 (0.16-1.47); MONOCYTES PERCENT AUTO 5 % (4-13); Mean Corpuscular HGB 25.5 pg (26.0-34.0); Mean Corpuscular HGB Conc 31.3 g/dL (31.5-36.5); Mean Corpuscular Volume 81 fL (80-100); Mean Platelet Volume 9.7 fL (9.1-12.4); NEUTROPHILS ABSOLUTE AUTO 4.57 K/mm3 (1.96-9.15); NEUTROPHILS PERCENT AUTO 51 % (41-73); Platelet Count 365 K/mm3 (150-400); RDW Standard Deviation 44.7 fL (35.1-46.3); Red Blood Cell Count 4.83 M/mm3 (3.80-5.20); White Blood Cell Count 8.98 K/mm3 (4.00-11.30)
[2022-06-07 23:26] LABS: Source, Urine Voided
[2022-06-07 23:32] LABS: Bilirubin, Urine Neg (Neg); Blood, Urine Neg (Neg); Glucose Qualitative, Urine Neg (Neg); Ketones, Urine Neg (Neg); Leukocyte Esterase, Urine 1+ (Neg); Nitrite, Urine Neg (Neg); Protein, Urine Neg (Neg); Urobilinogen, Urine NORM (Normal)
[2022-06-07 23:38] LABS: Appearance, Urine Clear (Clear); Color, Urine Yellow (P-Yellow)
[2022-06-07 23:39] LABS: Bacteria Few /hpf; Red Blood Cells, Urine Not Seen /hpf (0-2); Squamous Epithelial Cells Mod /hpf (Few); White Blood Cells, Urine 0-2 /hpf (0-5)
== END 2022-06-08 00:37 | disposition home or self-care (01) ==
LOC: ER 21:44
PROVIDERS: Emergency Medicine
DX: R10.31 Right lower quadrant pain (principal); J45.909 Unspecified asthma, uncomplicated; Z88.8 Allergy status to other drugs, medicaments and biological substances; Z88.5 Allergy status to narcotic agent; Z79.899 Other long term (current) drug therapy; Z87.891 Personal history of nicotine dependence
CPT/HCPCS: 36415; 80053; 81001; 83690; 85025; 99283

== ENCOUNTER 2022-06-16 17:32 | Emergency (ER) | payer OTHER ==
[~2022-06-16] VITALS: Ht 180.3 cm; Wt 90.7 kg
[2022-06-16 18:17] LABS: BASOPHILS ABSOLUTE AUTO 0.04 K/mm3 (0.00-0.23); BASOPHILS PERCENT AUTO 1 % (0-2); EOSINOPHILS ABSOLUTE AUTO 0.63 K/mm3 (0.00-0.68); EOSINOPHILS PERCENT AUTO 9 % (0-6); Hematocrit 38.7 % (33.0-51.0); Hemoglobin 12.5 g/dL (11.5-16.0); IMMATURE GRAN ABSOLUTE AUTO 0.02 K/mm3 (0.00-0.10); IMMATURE GRAN PERCENT AUTO 0 % (0-1); LYMPHOCYTES ABSOLUTE AUTO 2.68 K/mm3 (0.84-5.20); LYMPHOCYTES PERCENT AUTO 38 % (21-46); MONOCYTES ABSOLUTE AUTO 0.37 K/mm3 (0.16-1.47); MONOCYTES PERCENT AUTO 5 % (4-13); Mean Corpuscular HGB 25.6 pg (26.0-34.0); Mean Corpuscular HGB Conc 32.3 g/dL (31.5-36.5); Mean Corpuscular Volume 79 fL (80-100); Mean Platelet Volume 9.4 fL (9.1-12.4); NEUTROPHILS ABSOLUTE AUTO 3.25 K/mm3 (1.96-9.15); NEUTROPHILS PERCENT AUTO 47 % (41-73); Platelet Count 310 K/mm3 (150-400); RDW Standard Deviation 43.2 fL (35.1-46.3); Red Blood Cell Count 4.88 M/mm3 (3.80-5.20); White Blood Cell Count 6.99 K/mm3 (4.00-11.30)
[2022-06-16 18:33] LABS: Influenza A, PCR NEGATIVE (NEGATIVE); Influenza B, PCR NEGATIVE (NEGATIVE); Resp Syncytial Virus, PCR NEGATIVE (NEGATIVE); SARS-Cov-2 (COVID-19) PCR, MMC NEGATIVE (NEGATIVE)
[2022-06-16 18:46] LABS: Alanine Aminotransfer (ALT/SGP 26 U/L (12-78); Albumin, Blood 3.6 g/dL (3.4-5.0); Albumin/Globulin Ratio 0.9 (0.8-1.8); Alk Phos 110 U/L (50-136); Anion Gap 5 mmol/L (6-16); Aspartate Aminotrans (AST/SGOT 16 U/L (12-37); Bilirubin, Total <0.1 mg/dL (0.1-1.0); Blood Urea Nitrogen 9 mg/dL (8-24); Bun/Creatinine Ratio 11.2 (12.0-20.0); CO2, Blood 26 mmol/L (21-32); Chloride, Blood 108 mmol/L (98-108); Glomerular Filtration Rate 101 (60-); Glucose, Blood 150 mg/dL (70-99); Potassium, Blood 3.6 mmol/L (3.5-5.5); Sodium, Blood 139 mmol/L (136-145); Total Protein, Blood 7.6 g/dL (6.4-8.2)
[2022-06-16] MEDS ORDERED: AZIT250 PO (19:48)
[2022-06-16 20:46] LABS: C-REACTIVE PROTEIN, EXT RANGE 0.879 mg/dL (0.000-0.300)
[2022-06-16] MEDS ORDERED: IBUP800 PO (21:45)
[2022-06-16] MEDS ORDERED: PRED20 PO (21:45)
== END 2022-06-16 22:00 | disposition home or self-care (01) ==
LOC: ER 17:32
PROVIDERS: Physician Assistant
DX: R07.81 Pleurodynia (principal); J45.901 Unspecified asthma with (acute) exacerbation; R79.82 Elevated C-reactive protein (CRP); Z88.8 Allergy status to other drugs, medicaments and biological substances; Z88.5 Allergy status to narcotic agent; Z79.899 Other long term (current) drug therapy; Z20.822 Contact with and (suspected) exposure to COVID-19
CPT/HCPCS: 0241U; 36415; 71046; 80053; 83690; 83880; 84484; 85025; 85379; 85651; 86140; 93005; 93010; 94640; 94664; 96374; 99284-25; J1885; J7512

== ENCOUNTER → 2022-08-05 | Outpatient (CLI) | payer OTHER ==
[~2022-08-05] MED LIST changes: +AZIT250 PO; +LIDOCAINE1 EAC1 TOP; +Robaxin750 MG PO
== END | disposition home or self-care (01) ==
LOC: LAB SHORT 09:39
DX: C43.4 Malignant melanoma of scalp and neck (principal)
CPT/HCPCS: 88305

== ENCOUNTER 2022-08-10 16:17 | Emergency (ER) | payer OTHER ==
[~2022-08-10] VITALS: Ht 177.8 cm; Wt 56.7 kg
[~2022-08-10 16:17] MED LIST changes: -LIDOCAINE1 EAC1 TOP; -Robaxin750 MG PO
[2022-08-10] MEDS ORDERED: Robaxin750 MG PO (19:10)
[2022-08-10] MEDS ORDERED: LIDOCAINE1 EAC1 TOP (19:10)
[2022-08-11] MEDS ORDERED: Prednisone50 MG PO (00:51)
== END 2022-08-10 19:28 | disposition home or self-care (01) ==
LOC: ER 16:17
DX: M54.50 Low back pain, unspecified (principal); J45.901 Unspecified asthma with (acute) exacerbation; Z88.5 Allergy status to narcotic agent; Z88.8 Allergy status to other drugs, medicaments and biological substances; Z79.52 Long term (current) use of systemic steroids; Z79.899 Other long term (current) drug therapy; Z87.891 Personal history of nicotine dependence
CPT/HCPCS: 96372; 99283-25; A9270; J1885

== ENCOUNTER 2022-08-10 20:59 | Emergency (ER) | payer OTHER ==
[~2022-08-10] VITALS: Ht 177.8 cm; Wt 99.8 kg
[~2022-08-10 20:59] MED LIST changes: +LIDOCAINE1 EAC1 TOP; +Robaxin750 MG PO
[2022-08-10 23:21] LABS: BASOPHILS ABSOLUTE AUTO 0.06 K/mm3 (0.00-0.23); BASOPHILS PERCENT AUTO 1 % (0-2); EOSINOPHILS ABSOLUTE AUTO 0.57 K/mm3 (0.00-0.68); EOSINOPHILS PERCENT AUTO 4 % (0-6); Hematocrit 38.9 % (33.0-51.0); Hemoglobin 12.7 g/dL (11.5-16.0); IMMATURE GRAN ABSOLUTE AUTO 0.04 K/mm3 (0.00-0.10); IMMATURE GRAN PERCENT AUTO 0 % (0-1); LYMPHOCYTES ABSOLUTE AUTO 2.36 K/mm3 (0.84-5.20); LYMPHOCYTES PERCENT AUTO 18 % (21-46); MONOCYTES ABSOLUTE AUTO 0.47 K/mm3 (0.16-1.47); MONOCYTES PERCENT AUTO 4 % (4-13); Mean Corpuscular HGB Conc 32.6 g/dL (31.5-36.5); Mean Corpuscular Volume 80 fL (80-100); Mean Platelet Volume 9.3 fL (9.1-12.4); NEUTROPHILS ABSOLUTE AUTO 9.49 K/mm3 (1.96-9.15); NEUTROPHILS PERCENT AUTO 73 % (41-73); Platelet Count 374 K/mm3 (150-400); RDW Coefficient Variation 15.6 % (11.7-14.2); Red Blood Cell Count 4.88 M/mm3 (3.80-5.20); White Blood Cell Count 12.99 K/mm3 (4.00-11.30)
[2022-08-10 23:50] LABS: Calcium, Blood 8.2 mg/dL (8.5-10.1); Creatinine, Blood 0.76 mg/dL (0.40-1.00); Potassium, Blood 3.5 mmol/L (3.5-5.5)
[2022-08-11] MEDS ORDERED: Prednisone50 MG PO (00:51)
== END 2022-08-11 00:58 | disposition home or self-care (01) ==
LOC: ER 20:59
PROVIDERS: Student in an Organized Health Care Education/Training Program
DX: J45.901 Unspecified asthma with (acute) exacerbation (principal); Z88.8 Allergy status to other drugs, medicaments and biological substances; Z88.5 Allergy status to narcotic agent; Z79.899 Other long term (current) drug therapy; Z87.891 Personal history of nicotine dependence
CPT/HCPCS: 36415; 71046; 80048; 85025; 94640; 94644; 94645; 94664; J1885; J2930; J3475

== ENCOUNTER 2022-10-27 02:38 | Emergency (ER) | payer OTHER ==
[~2022-10-27] VITALS: Ht 172.7 cm; Wt 108.9 kg
[2022-10-27 04:25] LABS: Bun/Creatinine Ratio 15.9 (12.0-20.0); Calcium, Blood 8.4 mg/dL (8.5-10.1); Creatinine, Blood 0.76 mg/dL (0.40-1.00); Potassium, Blood 4.4 mmol/L (3.5-5.5)
[2022-10-27 04:29] LABS: BASOPHILS ABSOLUTE AUTO 0.03 K/mm3 (0.00-0.23); BASOPHILS PERCENT AUTO 0 % (0-2); EOSINOPHILS ABSOLUTE AUTO 0.41 K/mm3 (0.00-0.68); EOSINOPHILS PERCENT AUTO 6 % (0-6); Hematocrit 38.7 % (33.0-51.0); Hemoglobin 12.3 g/dL (11.5-16.0); IMMATURE GRAN ABSOLUTE AUTO 0.02 K/mm3 (0.00-0.10); IMMATURE GRAN PERCENT AUTO 0 % (0-1); LYMPHOCYTES ABSOLUTE AUTO 2.43 K/mm3 (0.84-5.20); LYMPHOCYTES PERCENT AUTO 34 % (21-46); MONOCYTES ABSOLUTE AUTO 0.44 K/mm3 (0.16-1.47); MONOCYTES PERCENT AUTO 6 % (4-13); Mean Corpuscular HGB 26.3 pg (26.0-34.0); Mean Corpuscular HGB Conc 31.8 g/dL (31.5-36.5); Mean Corpuscular Volume 83 fL (80-100); Mean Platelet Volume 9.6 fL (9.1-12.4); NEUTROPHILS ABSOLUTE AUTO 3.84 K/mm3 (1.96-9.15); NEUTROPHILS PERCENT AUTO 54 % (41-73); Platelet Count 287 K/mm3 (150-400); RDW Coefficient Variation 14.6 % (11.7-14.2); RDW Standard Deviation 43.9 fL (35.1-46.3); Red Blood Cell Count 4.67 M/mm3 (3.80-5.20); White Blood Cell Count 7.17 K/mm3 (4.00-11.30)
[2022-10-27 05:10] LABS: Source, Urine Clean Catch
[2022-10-27 05:16] LABS: Bilirubin, Urine Neg (Neg); Blood, Urine Neg (Neg); Glucose Qualitative, Urine Neg (Neg); Ketones, Urine Neg (Neg); Leukocyte Esterase, Urine Neg (Neg); Nitrite, Urine Neg (Neg); Protein, Urine Neg (Neg); Urobilinogen, Urine NORM (Normal)
[2022-10-27 05:23] LABS: Appearance, Urine Clear (Clear); Color, Urine Yellow (P-Yellow)
[2022-10-27] MEDS ORDERED: ALBU90OI INH (05:41)
[2022-10-27] MEDS ORDERED: PRED20 PO (05:41)
== END 2022-10-27 05:58 | disposition home or self-care (01) ==
LOC: ER 02:38
PROVIDERS: Emergency Medicine
DX: J45.901 Unspecified asthma with (acute) exacerbation (principal); R10.31 Right lower quadrant pain; Z88.5 Allergy status to narcotic agent; Z88.8 Allergy status to other drugs, medicaments and biological substances; Z79.899 Other long term (current) drug therapy
CPT/HCPCS: 36415; 74177; 80048; 81003; 84703; 85025; 94644; 94664; J7030; Q9967

== ENCOUNTER → 2022-11-28 | Outpatient (CLI) | payer OTHER ==
[2022-12-01 15:09] LABS: HPV 16 Negative (Negative); HPV 18 Negative (Negative); HPV OTHER HR TYPES Negative (Negative)
== END | disposition home or self-care (01) ==
LOC: LAB SHORT 16:56
PROVIDERS: Family Medicine
DX: Z01.419 Encounter for gynecological examination (general) (routine) without abnormal findings (principal)
CPT/HCPCS: 87624; G0145

== ENCOUNTER 2022-12-26 23:47 | Emergency (ER) | payer OTHER ==
[~2022-12-26] VITALS: Ht 177.8 cm; Wt 98.0 kg
[2022-12-27 00:26] LABS: BASOPHILS ABSOLUTE AUTO 0.08 K/mm3 (0.00-0.23); BASOPHILS PERCENT AUTO 1 % (0-2); EOSINOPHILS ABSOLUTE AUTO 0.93 K/mm3 (0.00-0.68); EOSINOPHILS PERCENT AUTO 9 % (0-6); Hematocrit 37.9 % (33.0-51.0); Hemoglobin 12.3 g/dL (11.5-16.0); IMMATURE GRAN ABSOLUTE AUTO 0.03 K/mm3 (0.00-0.10); IMMATURE GRAN PERCENT AUTO 0 % (0-1); LYMPHOCYTES ABSOLUTE AUTO 3.69 K/mm3 (0.84-5.20); LYMPHOCYTES PERCENT AUTO 38 % (21-46); MONOCYTES ABSOLUTE AUTO 0.53 K/mm3 (0.16-1.47); MONOCYTES PERCENT AUTO 5 % (4-13); Mean Corpuscular HGB 25.9 pg (26.0-34.0); Mean Corpuscular HGB Conc 32.5 g/dL (31.5-36.5); Mean Corpuscular Volume 80 fL (80-100); Mean Platelet Volume 9.5 fL (9.1-12.4); NEUTROPHILS ABSOLUTE AUTO 4.59 K/mm3 (1.96-9.15); NEUTROPHILS PERCENT AUTO 47 % (41-73); Platelet Count 318 K/mm3 (150-400); RDW Coefficient Variation 14.6 % (11.7-14.2); Red Blood Cell Count 4.75 M/mm3 (3.80-5.20); White Blood Cell Count 9.85 K/mm3 (4.00-11.30)
[2022-12-27 00:44] LABS: Albumin, Blood 3.6 g/dL (3.4-5.0); Albumin/Globulin Ratio 0.9 (0.8-1.8); Bilirubin, Total 0.1 mg/dL (0.1-1.0); Bun/Creatinine Ratio 15.6 (12.0-20.0); Calcium, Blood 9.1 mg/dL (8.5-10.1); Creatinine, Blood 0.84 mg/dL (0.40-1.00); Globulin, Blood 4.1 g/dL (2.2-4.0); Potassium, Blood 3.8 mmol/L (3.5-5.5); Total Protein, Blood 7.7 g/dL (6.4-8.2)
[2022-12-27 04:01] VITALS: BP 117/82
== END 2022-12-27 04:00 | disposition home or self-care (01) ==
LOC: ER 23:47
PROVIDERS: Student in an Organized Health Care Education/Training Program
DX: R07.9 Chest pain, unspecified (principal); Z88.8 Allergy status to other drugs, medicaments and biological substances; Z88.5 Allergy status to narcotic agent; Z79.899 Other long term (current) drug therapy; Z79.52 Long term (current) use of systemic steroids; J45.909 Unspecified asthma, uncomplicated
CPT/HCPCS: 36415; 71045; 80053; 84484; 85025; 93005; 93010; 96374; 99284; J2405

== ENCOUNTER 2023-01-29 22:06 | Observation (INO) | payer OTHER ==
[~2023-01-29] VITALS: Ht 177.8 cm; Wt 98.3 kg
[2023-01-29 23:05] LABS: BASOPHILS ABSOLUTE AUTO 0.05 K/mm3 (0.00-0.23); BASOPHILS PERCENT AUTO 1 % (0-2); EOSINOPHILS ABSOLUTE AUTO 0.59 K/mm3 (0.00-0.68); EOSINOPHILS PERCENT AUTO 7 % (0-6); Hematocrit 41.1 % (33.0-51.0); IMMATURE GRAN ABSOLUTE AUTO 0.01 K/mm3 (0.00-0.10); IMMATURE GRAN PERCENT AUTO 0 % (0-1); LYMPHOCYTES PERCENT AUTO 43 % (21-46); MONOCYTES ABSOLUTE AUTO 0.38 K/mm3 (0.16-1.47); MONOCYTES PERCENT AUTO 5 % (4-13); Mean Corpuscular HGB 25.9 pg (26.0-34.0); Mean Corpuscular HGB Conc 31.6 g/dL (31.5-36.5); Mean Corpuscular Volume 82 fL (80-100); Mean Platelet Volume 9.7 fL (9.1-12.4); NEUTROPHILS ABSOLUTE AUTO 3.64 K/mm3 (1.96-9.15); NEUTROPHILS PERCENT AUTO 45 % (41-73); Platelet Count 364 K/mm3 (150-400); RDW Coefficient Variation 14.9 % (11.7-14.2); RDW Standard Deviation 45.3 fL (35.1-46.3); Red Blood Cell Count 5.01 M/mm3 (3.80-5.20); White Blood Cell Count 8.17 K/mm3 (4.00-11.30)
[2023-01-29 23:26] LABS: Alanine Aminotransfer (ALT/SGP 33 U/L (12-78); Albumin, Blood 3.8 g/dL (3.4-5.0); Albumin/Globulin Ratio 0.9 (0.8-1.8); Alk Phos 112 U/L (50-136); Anion Gap 4 mmol/L (6-16); Aspartate Aminotrans (AST/SGOT 24 U/L (12-37); Beta HCG, Quantitative, Serum <1 mIU/mL (0-3); Bilirubin, Total 0.2 mg/dL (0.1-1.0); Blood Urea Nitrogen 12 mg/dL (8-24); Bun/Creatinine Ratio 14.9 (12.0-20.0); CO2, Blood 29 mmol/L (21-32); Calcium, Blood 9.1 mg/dL (8.5-10.1); Chloride, Blood 107 mmol/L (98-108); Globulin, Blood 4.4 g/dL (2.2-4.0); Glomerular Filtration Rate 100 (60-); Glucose, Blood 106 mg/dL (70-99); Potassium, Blood 4.2 mmol/L (3.5-5.5); Sodium, Blood 140 mmol/L (136-145); Total Protein, Blood 8.2 g/dL (6.4-8.2)
[2023-01-29 23:48] LABS: Influenza A, PCR NEGATIVE (NEGATIVE); Influenza B, PCR NEGATIVE (NEGATIVE); Resp Syncytial Virus, PCR NEGATIVE (NEGATIVE); SARS-Cov-2 (COVID-19) PCR, MMC NEGATIVE (NEGATIVE)
[2023-01-30 01:24] VITALS: BP 139/91
--- NOTE | 2023-01-30 03:11 | NUR ---
ADMIT PATIENT ARRIVED TO ROOM 211 @ ABOUT 0120, VSS, ON RA, SPO2 94%. TALKING FULL SENTENCES. ABLE TO AMBULATE IN ROOM. FLUIDS STARTED. PATIENT NPO AT THIS TIME. WILL CONT. TO MONITOR AND TREAT PER ORDERS.
[2023-01-30 04:40] LABS: BASOPHILS ABSOLUTE AUTO 0.03 K/mm3 (0.00-0.23); BASOPHILS PERCENT AUTO 0 % (0-2); EOSINOPHILS ABSOLUTE AUTO 0.02 K/mm3 (0.00-0.68); EOSINOPHILS PERCENT AUTO 0 % (0-6); Hematocrit 38.6 % (33.0-51.0); Hemoglobin 12.2 g/dL (11.5-16.0); IMMATURE GRAN ABSOLUTE AUTO 0.02 K/mm3 (0.00-0.10); IMMATURE GRAN PERCENT AUTO 0 % (0-1); LYMPHOCYTES ABSOLUTE AUTO 0.86 K/mm3 (0.84-5.20); LYMPHOCYTES PERCENT AUTO 11 % (21-46); MONOCYTES ABSOLUTE AUTO 0.07 K/mm3 (0.16-1.47); MONOCYTES PERCENT AUTO 1 % (4-13); Mean Corpuscular HGB 25.8 pg (26.0-34.0); Mean Corpuscular HGB Conc 31.6 g/dL (31.5-36.5); Mean Corpuscular Volume 82 fL (80-100); Mean Platelet Volume 9.5 fL (9.1-12.4); NEUTROPHILS ABSOLUTE AUTO 6.98 K/mm3 (1.96-9.15); NEUTROPHILS PERCENT AUTO 87 % (41-73); Platelet Count 342 K/mm3 (150-400); RDW Coefficient Variation 14.7 % (11.7-14.2); RDW Standard Deviation 44.4 fL (35.1-46.3); Red Blood Cell Count 4.73 M/mm3 (3.80-5.20); White Blood Cell Count 7.98 K/mm3 (4.00-11.30)
--- NOTE | 2023-01-30 04:44 | NUR ---
SHIFT SUMMARY NO ACUTE CHANGES SINCE LAST NOTE, SPO2 REMAINED> 95% WHILE ASLEEP, PATIENT PLACED ON 1L NC 02. TOLERATING WELL. SLIGHT WHEEZE IN RML, DIM IN BASES BILAT, TIGHT IN UPPER LOBES BILAT. PATIENT DENIES CHEST PAIN SOB. ABLE TO SLEEP T/O NIGHT. UP WALKING IN ROOM TO BATHROOM VOIDS EASILY. FLUIDS RUNNING. CALL LIGHT IN REACH.
[2023-01-30 05:00] LABS: Albumin, Blood 3.5 g/dL (3.4-5.0); Albumin/Globulin Ratio 0.9 (0.8-1.8); Bilirubin, Total 0.1 mg/dL (0.1-1.0); Bun/Creatinine Ratio 17.4 (12.0-20.0); Calcium, Blood 8.6 mg/dL (8.5-10.1); Creatinine, Blood 0.75 mg/dL (0.40-1.00); Globulin, Blood 3.9 g/dL (2.2-4.0); Potassium, Blood 3.9 mmol/L (3.5-5.5); Total Protein, Blood 7.4 g/dL (6.4-8.2)
[2023-01-30 07:17] VITALS: BP 123/78
--- NOTE | 2023-01-30 09:07 | NUR ---
MORNING ASSESSMENT: PATIENT RESTING IN HER BED. PATIENT REPORTS SOME ABDOMINAL TENDERNESS UNRELATED TO ADMISSION TO THE HOSPITAL. PATIENT'S BREATHING IS EVEN AND REGULAR. NO DISTRESS NOTED. PATIENT DENIES DIFFICULTY BREATHING OR SHORTNESS OF BREATH. SPO2 IS 95-97% ON ROOM AIR. PATIENT CONTINUES TO BE TACHY AT TIMES (110-122). PATIENT REPORTS SOME DIZZINESS WHEN SHE SITS UP TO AMBULATE THAT RESOLVES IF SHE SITS FOR JUST A MINUTE. PATIENT DENIES CHEST PAIN. PATIENT REPORTS SHE IS FEELING READY TO GO HOME TODAY.
--- NOTE | 2023-01-30 10:27 | NUR ---
ATRIAL ESCAPE BEATS: DISCUSSED PATIENTS RATE AND RHYTHM WITH TELEMETRY. LADI NOTED THAT THE PATIENT HAS BEEN HAVING ATRIAL ESCAPE BEATS SINCE BEING PLACED ON TELEMETRY. PATIENT IS ASYMPTOMATIC. CALCINER FEEDER REPORTED THAT THE BEATS ARE NOT OCCURING EVERY MINUTE, BUT ARE OCCASIONALLY APPARENT ON A 12 MINUTE VIEW. RELAYED THIS INFORMATION TO DR. PETERS. NO NEW ORDERS AT THIS TIME.
--- NOTE | 2023-01-30 12:47 | NUR ---
AFTERNOON ASSESSMENT: PATIENT CONTINUES TO DO WELL ON RA. PATIENT SPO2 IS 96-98% WHILE AWAKE. SHE WILL GO LOW 93% ON RA WITH DEEP SLEEP. PATIENT CONTINUES TO DENY SHORTNESS OF BREATH OR DIFFICULTY BREATHING. NO DESATURATIONS NOTED WITH ACTIVITY. BREATHS ARE EVEN AND REGULAR. LUNG SOUNDS CONTINUE TO SOUND A LITTLE TIGHT. PATIENT CONTINUES TO BE IN SINUS TACH. NOTIFIED DR. PETERS OF ATRIAL ESCAPE BEATS (SEE NURSES NOTE). PATIENT CONTINUES TO BE ASYMPTOMATIC. PATIENT HAD A COUPLE EPISODES OF TACHY UP TO 150'S WHEN AWOKEN (PATIENT REPORTS PTSD; RN NOTED A SIGNIFICANT STARTLE RESPONSE WITH AWAKENING) AND POST BREATHING TREATMENT. PATIENT REPORTS THIS IS BASELINE FOR HER. PATIENT RECOVERED QUICKLY TO HR'S OF HIGH 90'S TO LOW 120'S. PATIENT REPORTS THAT SHE IS READY TO DISCHARGE AND IS CONFIDENT THAT SHE WILL CONTINUE TO RECOVER AT HOME. PATIENT REPORTS UNDERSTANDING OF NEW MEDICATIONS (PO STEROID TAPER AND SYMBICORT) THAT WILL BE ORDERED FOR DISCHARGE.
[2023-01-30] MEDS ORDERED: IPRAT-ALBUT 0.5-3 ML INH (13:11)
[2023-01-30] MEDS ORDERED: LORA10ER PO (13:12)
[2023-01-30] MEDS ORDERED: PRED20 PO (13:14)
[2023-01-30] MEDS ORDERED: DULERA 100 MCG/13 GM INH (13:15)
--- NOTE | 2023-01-30 14:05 | NUR ---
DISCHARGE SUMMARY: NO CHANGES TO PATIENT'S RESPIRATORY STATUS DISCUSSED IN AFTERNOON ASSESSMENT. PATIENT UP TO THE BATHROOM WITHOUT CHANGES TO BREATHING PATTERN OR DESATURATIONS. PER MD ORDERS, PATIENT READY FOR DISCHARGE. DISCHARGE INSTRUCTIONS FAXED TO [facility] PER PATIENT REQUEST. DISCHARGE INSTRUCTIONS AND EDUCATION PROVIDED. PATIENT REPORTED UNDERSTANDING. ADDRESSED ALL QUESTIONS AND CONCERNS. PATIENT WALKED WITH RN TO HOSPITAL ENTRANCE. (PATIENT REFUSED WHEELCHAIR). PATIENT ABLE TO AMBULATE THIS DISTANCE EASILY WITH NO CHANGES TO RESPIRATORY STATUS. PATIENT STABLE AT TIME OF DISCHARGE. HR NOTE: POST LUNCH TIME BREATHING TREATMENT, PATIENT EXPERIENCED TACHY HR IN THE HIGH 120S AND LOW 130S. DISCUSSED WITH PATIENT. PATIENT ASYMPTOMATIC. PATIENT REPORTS THIS IS NORMAL FOR HER POST BREATHING TREATMENTS. PATIENT HAS PERSONAL SPO2 MONITOR WITH HER THAT SHE REPORTS SHE USES FREQUENTLY THROUGHOUT THE DAY. THE AFTERNOON PROGRESSED, HR TRENDED DOWN. PATIENT CONTINED TO REPORT THAT THIS WAS TYPICAL FOR HER.
== END 2023-01-30 13:40 | disposition home or self-care (01) ==
LOC: ER 22:06 → SURS 22:07
PROVIDERS: Emergency Medicine; ADMIT Internal Medicine
DX: J45.901 Unspecified asthma with (acute) exacerbation (principal); Z88.8 Allergy status to other drugs, medicaments and biological substances; Z20.822 Contact with and (suspected) exposure to COVID-19
CPT/HCPCS: 0241U; 36415; 71045; 80053; 84702; 85025; 94640; 94644; 94664; 94760; 94762; 96361; 96365; 96375; 96376; 99285-25; A9270; G0378; J2930; J3475; J7030

== ENCOUNTER 2023-03-13 21:34 | Emergency (ER) | payer OTHER ==
[~2023-03-13] VITALS: Ht 177.8 cm; Wt 97.5 kg
[~2023-03-13 21:34] MED LIST changes: +DULERA 100 MCG/13 GM INH; +IPRAT-ALBUT 0.5-3 ML INH
[2023-03-13 22:36] LABS: BASOPHILS ABSOLUTE AUTO 0.08 K/mm3 (0.00-0.23); BASOPHILS PERCENT AUTO 1 % (0-2); EOSINOPHILS ABSOLUTE AUTO 0.66 K/mm3 (0.00-0.68); EOSINOPHILS PERCENT AUTO 7 % (0-6); Hematocrit 36.9 % (33.0-51.0); IMMATURE GRAN ABSOLUTE AUTO 0.02 K/mm3 (0.00-0.10); IMMATURE GRAN PERCENT AUTO 0 % (0-1); LYMPHOCYTES ABSOLUTE AUTO 3.43 K/mm3 (0.84-5.20); LYMPHOCYTES PERCENT AUTO 38 % (21-46); MONOCYTES ABSOLUTE AUTO 0.59 K/mm3 (0.16-1.47); MONOCYTES PERCENT AUTO 6 % (4-13); Mean Corpuscular HGB 26.5 pg (26.0-34.0); Mean Corpuscular HGB Conc 32.5 g/dL (31.5-36.5); Mean Corpuscular Volume 82 fL (80-100); Mean Platelet Volume 9.7 fL (9.1-12.4); NEUTROPHILS ABSOLUTE AUTO 4.37 K/mm3 (1.96-9.15); NEUTROPHILS PERCENT AUTO 48 % (41-73); Platelet Count 314 K/mm3 (150-400); RDW Coefficient Variation 13.9 % (11.7-14.2); RDW Standard Deviation 40.9 fL (35.1-46.3); Red Blood Cell Count 4.53 M/mm3 (3.80-5.20); White Blood Cell Count 9.15 K/mm3 (4.00-11.30)
[2023-03-13 22:55] LABS: Albumin, Blood 3.4 g/dL (3.4-5.0); Albumin/Globulin Ratio 0.9 (0.8-1.8); Bilirubin, Total 0.1 mg/dL (0.1-1.0); Bun/Creatinine Ratio 14.9 (12.0-20.0); Calcium, Blood 8.5 mg/dL (8.5-10.1); Creatinine, Blood 0.94 mg/dL (0.40-1.00); Globulin, Blood 3.9 g/dL (2.2-4.0); Potassium, Blood 3.6 mmol/L (3.5-5.5); Total Protein, Blood 7.3 g/dL (6.4-8.2)
[2023-03-14 01:21] VITALS: BP 123/99
== END 2023-03-14 01:20 | disposition home or self-care (01) ==
LOC: ER 21:34
PROVIDERS: Student in an Organized Health Care Education/Training Program
DX: R07.9 Chest pain, unspecified (principal); Z88.5 Allergy status to narcotic agent; Z88.8 Allergy status to other drugs, medicaments and biological substances; Z79.51 Long term (current) use of inhaled steroids; Z79.899 Other long term (current) drug therapy; J45.909 Unspecified asthma, uncomplicated; E11.9 Type 2 diabetes mellitus without complications; Z86.16 Personal history of COVID-19; Z87.891 Personal history of nicotine dependence
CPT/HCPCS: 71046; 80053; 84484; 85025; 93005; 93010; 99285-25

== ENCOUNTER 2023-04-02 17:53 | Emergency (ER) | payer OTHER ==
[~2023-04-02] VITALS: Ht 177.8 cm; Wt 97.5 kg
[2023-04-02 18:34] LABS: BASOPHILS ABSOLUTE AUTO 0.06 K/mm3 (0.00-0.23); BASOPHILS PERCENT AUTO 1 % (0-2); EOSINOPHILS ABSOLUTE AUTO 1.05 K/mm3 (0.00-0.68); EOSINOPHILS PERCENT AUTO 12 % (0-6); Hematocrit 36.6 % (33.0-51.0); Hemoglobin 11.7 g/dL (11.5-16.0); IMMATURE GRAN ABSOLUTE AUTO 0.02 K/mm3 (0.00-0.10); IMMATURE GRAN PERCENT AUTO 0 % (0-1); LYMPHOCYTES ABSOLUTE AUTO 3.09 K/mm3 (0.84-5.20); LYMPHOCYTES PERCENT AUTO 34 % (21-46); MONOCYTES PERCENT AUTO 6 % (4-13); Mean Corpuscular HGB 26.1 pg (26.0-34.0); Mean Corpuscular Volume 82 fL (80-100); Mean Platelet Volume 9.8 fL (9.1-12.4); NEUTROPHILS ABSOLUTE AUTO 4.44 K/mm3 (1.96-9.15); NEUTROPHILS PERCENT AUTO 48 % (41-73); Platelet Count 311 K/mm3 (150-400); RDW Coefficient Variation 14.3 % (11.7-14.2); RDW Standard Deviation 42.3 fL (35.1-46.3); Red Blood Cell Count 4.48 M/mm3 (3.80-5.20); White Blood Cell Count 9.16 K/mm3 (4.00-11.30)
[2023-04-02 18:46] LABS: Albumin, Blood 3.5 g/dL (3.4-5.0); Albumin/Globulin Ratio 0.9 (0.8-1.8); Bilirubin, Total 0.1 mg/dL (0.1-1.0); Bun/Creatinine Ratio 14.4 (12.0-20.0); Calcium, Blood 8.8 mg/dL (8.5-10.1); Creatinine, Blood 0.9 mg/dL (0.40-1.00); Globulin, Blood 3.8 g/dL (2.2-4.0); Potassium, Blood 4.2 mmol/L (3.5-5.5); Total Protein, Blood 7.3 g/dL (6.4-8.2)
[2023-04-02 19:26] LABS: Source, Urine Clean Catch
[2023-04-02 19:28] LABS: Appearance, Urine Hazy (Clear); Bilirubin, Urine Neg (Neg); Blood, Urine 5+ (Neg); Color, Urine Yellow (P-Yellow); Glucose Qualitative, Urine Neg (Neg); Ketones, Urine Neg (Neg); Leukocyte Esterase, Urine 1+ (Neg); Nitrite, Urine Neg (Neg); Protein, Urine Neg (Neg); Specific Gravity, Urine 1.025 (1.003-1.022); Urobilinogen, Urine NORM (Normal)
[2023-04-02 19:46] LABS: Bacteria Mod /hpf; Red Blood Cells, Urine 50-100 /hpf (0-2); Squamous Epithelial Cells Few /hpf (Few)
[2023-04-02 22:15] VITALS: BP 134/94
[2023-04-03] MEDS ORDERED: ONDA4ODT MM (00:02)
[2023-04-03] MEDS ORDERED: SULTRIDS PO (00:04)
== END 2023-04-03 00:28 | disposition home or self-care (01) ==
LOC: ER 17:53
PROVIDERS: Student in an Organized Health Care Education/Training Program
DX: R10.84 Generalized abdominal pain (principal); R11.0 Nausea; N92.0 Excessive and frequent menstruation with regular cycle; R19.7 Diarrhea, unspecified; J45.909 Unspecified asthma, uncomplicated; Z88.8 Allergy status to other drugs, medicaments and biological substances; Z88.5 Allergy status to narcotic agent; Z79.52 Long term (current) use of systemic steroids; Z79.899 Other long term (current) drug therapy; Z87.891 Personal history of nicotine dependence
CPT/HCPCS: 76770; 76830; 76856; 80053; 81001; 85025; 87086; 96374; 96375; 99284-25; A9270; J1885; J2405; J7030

== ENCOUNTER 2023-05-11 13:32 | Emergency (ER) | payer OTHER ==
[~2023-05-11] VITALS: Ht 177.8 cm; Wt 97.5 kg
[2023-05-11 13:46] VITALS: BP 125/91
== END 2023-05-11 14:20 | disposition home or self-care (01) ==
LOC: ER 13:32
DX: S91.332A Puncture wound without foreign body, left foot, initial encounter (principal); Z23 Encounter for immunization; W22.8XXA Striking against or struck by other objects, initial encounter; J45.909 Unspecified asthma, uncomplicated; Z87.891 Personal history of nicotine dependence
CPT/HCPCS: 73630; 90471; 90715; 99283-25

== ENCOUNTER 2023-05-14 14:44 | Emergency (ER) | payer OTHER ==
[~2023-05-14] VITALS: Ht 177.8 cm; Wt 97.5 kg
[2023-05-14 15:14] LABS: BASOPHILS ABSOLUTE AUTO 0.04 K/mm3 (0.00-0.23); BASOPHILS PERCENT AUTO 1 % (0-2); EOSINOPHILS ABSOLUTE AUTO 0.77 K/mm3 (0.00-0.68); EOSINOPHILS PERCENT AUTO 10 % (0-6); Hematocrit 36.8 % (33.0-51.0); Hemoglobin 11.8 g/dL (11.5-16.0); IMMATURE GRAN ABSOLUTE AUTO 0.02 K/mm3 (0.00-0.10); IMMATURE GRAN PERCENT AUTO 0 % (0-1); LYMPHOCYTES ABSOLUTE AUTO 2.62 K/mm3 (0.84-5.20); LYMPHOCYTES PERCENT AUTO 32 % (21-46); MONOCYTES ABSOLUTE AUTO 0.49 K/mm3 (0.16-1.47); MONOCYTES PERCENT AUTO 6 % (4-13); Mean Corpuscular HGB 26.2 pg (26.0-34.0); Mean Corpuscular HGB Conc 32.1 g/dL (31.5-36.5); Mean Corpuscular Volume 82 fL (80-100); Mean Platelet Volume 9.8 fL (9.1-12.4); NEUTROPHILS ABSOLUTE AUTO 4.19 K/mm3 (1.96-9.15); NEUTROPHILS PERCENT AUTO 52 % (41-73); Platelet Count 349 K/mm3 (150-400); RDW Coefficient Variation 14.4 % (11.7-14.2); RDW Standard Deviation 42.9 fL (35.1-46.3); Red Blood Cell Count 4.51 M/mm3 (3.80-5.20); White Blood Cell Count 8.13 K/mm3 (4.00-11.30)
[2023-05-14 15:34] LABS: Albumin, Blood 3.4 g/dL (3.4-5.0); Albumin/Globulin Ratio 0.9 (0.8-1.8); Bilirubin, Total 0.2 mg/dL (0.1-1.0); Bun/Creatinine Ratio 14.6 (12.0-20.0); Calcium, Blood 8.6 mg/dL (8.5-10.1); Creatinine, Blood 0.96 mg/dL (0.40-1.00); Globulin, Blood 3.7 g/dL (2.2-4.0); Potassium, Blood 4.2 mmol/L (3.5-5.5); Total Protein, Blood 7.1 g/dL (6.4-8.2)
[2023-05-14 18:25] VITALS: BP 122/97
== END 2023-05-14 18:50 | disposition home or self-care (01) ==
LOC: ER 14:44
PROVIDERS: Physician Assistant
DX: R10.31 Right lower quadrant pain (principal); Z88.8 Allergy status to other drugs, medicaments and biological substances; Z88.5 Allergy status to narcotic agent; Z79.899 Other long term (current) drug therapy; Z79.52 Long term (current) use of systemic steroids; J45.909 Unspecified asthma, uncomplicated; Z87.891 Personal history of nicotine dependence
CPT/HCPCS: 74177; 80053; 81025; 83690; 85025; 96374-59; 99284-25; J1885; Q9967

== ENCOUNTER 2023-08-19 07:26 | Observation (INO) | payer OTHER ==
[~2023-08-19] VITALS: Ht 180.3 cm; Wt 98.0 kg
[2023-08-19] VITALS (20 sets, daily range): BP systolic 104–135; BP diastolic 63–97
[~2023-08-19 07:26] MED LIST changes: +NAPR220 PO; +OXYC5 PO
[2023-08-19] MEDS ORDERED: FLUT1DIS5 (07:58)
[2023-08-19 08:59] LABS: Source, Urine Clean Catch
[2023-08-19 09:13] LABS: Bilirubin, Urine Neg (Neg); Blood, Urine 5+ (Neg); Glucose Qualitative, Urine Neg (Neg); Ketones, Urine Neg (Neg); Leukocyte Esterase, Urine 2+ (Neg); Nitrite, Urine Neg (Neg); Protein, Urine Neg (Neg); Specific Gravity, Urine 1.025 (1.003-1.022); Urobilinogen, Urine NORM (Normal)
[2023-08-19 09:21] LABS: Appearance, Urine Hazy (Clear); Bacteria Few /hpf; Color, Urine Yellow (P-Yellow); Squamous Epithelial Cells Few /hpf (Few)
[2023-08-19 09:24] LABS: BASOPHILS ABSOLUTE AUTO 0.04 K/mm3 (0.00-0.23); BASOPHILS PERCENT AUTO 1 % (0-2); EOSINOPHILS ABSOLUTE AUTO 0.35 K/mm3 (0.00-0.68); EOSINOPHILS PERCENT AUTO 5 % (0-6); Hematocrit 36.2 % (33.0-51.0); Hemoglobin 11.6 g/dL (11.5-16.0); IMMATURE GRAN ABSOLUTE AUTO 0.01 K/mm3 (0.00-0.10); IMMATURE GRAN PERCENT AUTO 0 % (0-1); LYMPHOCYTES ABSOLUTE AUTO 1.37 K/mm3 (0.84-5.20); LYMPHOCYTES PERCENT AUTO 21 % (21-46); MONOCYTES ABSOLUTE AUTO 0.39 K/mm3 (0.16-1.47); MONOCYTES PERCENT AUTO 6 % (4-13); Mean Corpuscular HGB 26.4 pg (26.0-34.0); Mean Corpuscular Volume 82 fL (80-100); Mean Platelet Volume 9.7 fL (9.1-12.4); NEUTROPHILS ABSOLUTE AUTO 4.38 K/mm3 (1.96-9.15); NEUTROPHILS PERCENT AUTO 67 % (41-73); Platelet Count 346 K/mm3 (150-400); RDW Coefficient Variation 14.4 % (11.7-14.2); RDW Standard Deviation 42.3 fL (35.1-46.3); White Blood Cell Count 6.54 K/mm3 (4.00-11.30)
[2023-08-19 09:46] LABS: Albumin, Blood 3.6 g/dL (3.4-5.0); Albumin/Globulin Ratio 0.9 (0.8-1.8); Bilirubin, Total 0.3 mg/dL (0.1-1.0); Bun/Creatinine Ratio 11.7 (12.0-20.0); Calcium, Blood 8.3 mg/dL (8.5-10.1); Creatinine, Blood 0.85 mg/dL (0.40-1.00); Globulin, Blood 4.2 g/dL (2.2-4.0); Potassium, Blood 4.4 mmol/L (3.5-5.5); Total Protein, Blood 7.8 g/dL (6.4-8.2)
--- NOTE | 2023-08-19 15:02 | NUR ---
IV SITE RAC PATENT/FLUSHED WITH 5CC NS.
--- NOTE | 2023-08-19 18:05 | NUR ---
POST OP: REPORT RECEIVED FROM SUPERVISOR ORCHARDSUGEY MALDONADO. PT TO UNIT AT 1740. PT IS A/O, VSS. PT ABLE TO TRANSFER SELF TO BED FROM [facility]. SURGICAL SITE HAS SMALL BLEEDING AT NICHO PAD, OTHERWISE DRY, INTACT. PT REPORTS PAIN TOLERABLE AT THIS TIME. PT ORIENTED TO ROOM AND CALL LIGHT. INSTRUCTED TO CALL STAFF THE 1ST TIME SHE NEEDS TO GET OOB. PT VERBALIZED UNDERSTANDING.
[2023-08-20 02:57] VITALS: BP 109/78
--- NOTE | 2023-08-20 04:30 | NUR ---
SHIFT SUMMARY POD 1 I&D VAGINAL ABCESS PT ABLE TO SLEEP T/O NIGHT. PAIN MANAGED PER EMAR. PT UP TO THE BATHROOM. NO N/V DURING SHIFT. PACKING TO BE TAKING OUT IN MORNING BY . NEEDS TO BE PRESENT DURING PACKING TAKING OUT. NO OTHER CONERNS AT THIS TIME. CALL LIGHT WITHIN REACH.
[2023-08-20 07:23] VITALS: BP 102/58
--- NOTE | 2023-08-20 15:57 | NUR ---
DISCHARGE SUMMARY PT A&OX4, VSS/RA, OREN PO, VOIDING, AMB INDEPENDENTLY IN HALLWAYS/DRESSED SELF, PAIN MANAGED, IV DC'D. DC INS PROVIDED. PT REP UNDERSTANDING THOSE INS, INCLUDING PACKING CHANGES, NOTHING PER VAGINA, SCRIPTS AT PHARMACY. LEFT FLOOR WITH , WITH ALL PERSONAL POSSESSIONS INCLUDING DC PACKET AND DRESSING/ PACKING SUPPLIES.
[2023-08-21 20:19] LABS: APTIMA MEDIA TYPE Urine; C. TRACHOMATIS BY TMA Negative (Negative); N. GONORRHOEAE BY TMA Negative (Negative); SPECIMEN SOURCE Urine; T. VAGINALIS BY TMA Negative (Negative)
== END 2023-08-20 15:45 | disposition home or self-care (01) ==
LOC: ER 07:26 → SURS 07:27
PROVIDERS: Student in an Organized Health Care Education/Training Program; ADMIT Obstetrics & Gynecology
PROC: 0U9LXZZ Drainage of Vestibular Gland, External Approach (ICD-10-PCS; principal; 2023-08-19 15:30)
DX: N75.1 Abscess of Bartholin's gland (principal); J45.909 Unspecified asthma, uncomplicated; Z87.891 Personal history of nicotine dependence; Z88.5 Allergy status to narcotic agent; Z88.8 Allergy status to other drugs, medicaments and biological substances; Z79.899 Other long term (current) drug therapy
CPT/HCPCS: 74177; 76857; 80053; 81001; 81025; 85025; 87070; 87075; 87077; 87086; 87186; 87205; 87491; 87591; 87661; 94762; 96374; 99284-25; A9270; G0378; J0295; J1885; J2250; J3010; J7120; Q9967

== ENCOUNTER 2023-10-31 18:27 | Emergency (ER) | payer OTHER ==
[~2023-10-31] VITALS: Ht 180.3 cm; Wt 98.0 kg
[~2023-10-31 18:27] MED LIST changes: +FLUT1DIS5
[2023-10-31 19:09] VITALS: BP 145/93
== END 2023-10-31 20:55 | disposition home or self-care (01) ==
LOC: ER 18:27
DX: J06.9 Acute upper respiratory infection, unspecified (principal); J45.909 Unspecified asthma, uncomplicated; F17.210 Nicotine dependence, cigarettes, uncomplicated; Z88.8 Allergy status to other drugs, medicaments and biological substances; Z88.5 Allergy status to narcotic agent; Z79.899 Other long term (current) drug therapy
CPT/HCPCS: 99283

== ENCOUNTER 2024-02-15 21:56 | Emergency (ER) | payer OTHER ==
[~2024-02-15] VITALS: Ht 180.3 cm; Wt 97.1 kg
[2024-02-15] MEDS ORDERED: Ipratropium/Albuterol SulF 2.5-0.5MG/3 ML Amp INH PRN (22:15)
[2024-02-15 22:45] VITALS: BP 114/86
[2024-02-15] MEDS ORDERED: DiphenhydrAMINE HCl 50 MG/ML 1ML Vial IV ONE (22:50)
[2024-02-16] MEDS ORDERED: Flonase 0.05% N16 GM (00:39)
[2024-02-16] MEDS ORDERED: DELTASONE20 MG PO (00:39)
== END 2024-02-16 01:47 | disposition home or self-care (01) ==
LOC: ER 21:56
DX: J45.901 Unspecified asthma with (acute) exacerbation (principal); Z88.8 Allergy status to other drugs, medicaments and biological substances; Z88.5 Allergy status to narcotic agent; Z79.899 Other long term (current) drug therapy; Z87.891 Personal history of nicotine dependence
CPT/HCPCS: 71046; 94640; 94664; 96374; 99285-25; J1200

== ENCOUNTER 2024-03-27 13:14 | Emergency (ER) | payer OTHER ==
[~2024-03-27] VITALS: Ht 177.8 cm; Wt 94.8 kg
[~2024-03-27 13:14] MED LIST changes: +DELTASONE20 MG PO; +Flonase 0.05% N16 GM
[2024-03-27 13:23] VITALS: BP 114/84
== END 2024-03-27 14:25 | disposition home or self-care (01) ==
LOC: ER 13:14
DX: S93.402A Sprain of unspecified ligament of left ankle, initial encounter (principal); F17.200 Nicotine dependence, unspecified, uncomplicated; W01.0XXA Fall on same level from slipping, tripping and stumbling without subsequent striking against object, initial encounter; Z79.52 Long term (current) use of systemic steroids; Z79.51 Long term (current) use of inhaled steroids; Z79.899 Other long term (current) drug therapy; Z88.6 Allergy status to analgesic agent; Z88.5 Allergy status to narcotic agent; Z88.8 Allergy status to other drugs, medicaments and biological substances
CPT/HCPCS: 73610; 99283-25

== ENCOUNTER 2024-03-31 20:33 | Emergency (ER) | payer OTHER ==
[~2024-03-31] VITALS: Ht 177.8 cm; Wt 94.8 kg
[2024-03-31 20:38] VITALS: BP 125/77
[2024-03-31] MEDS ORDERED: Dexamethasone Sod Phos 10 MG/ML 1ML VIAL PO ONE (21:00)
== END 2024-03-31 20:57 ==
LOC: ER 20:33
DX: J02.9 Acute pharyngitis, unspecified (principal); Z88.8 Allergy status to other drugs, medicaments and biological substances; Z88.6 Allergy status to analgesic agent; Z88.5 Allergy status to narcotic agent; Z79.899 Other long term (current) drug therapy; Z79.52 Long term (current) use of systemic steroids; J45.909 Unspecified asthma, uncomplicated; Z87.891 Personal history of nicotine dependence
CPT/HCPCS: 87430; 99283; J1100

== ENCOUNTER 2024-04-02 01:51 | Emergency (ER) | payer OTHER ==
[~2024-04-02] VITALS: Ht 177.8 cm; Wt 94.8 kg
[2024-04-02] MEDS ORDERED: XYZAL5 MG PO (03:30)
[2024-04-02] MEDS ORDERED: BUDESONIDE1 MG/2 M5 INH (03:30)
[2024-04-02] MEDS ORDERED: Lidocaine 2% Viscous Soln 15 ML UDC PO ONE (04:45)
[2024-04-02] MEDS ORDERED: EPINEPHrine HCL 11.25 MG/0.5 ML VIAL INH ONE (04:45)
[2024-04-02] MEDS ORDERED: Dexamethasone Sod Phos 10 MG/ML 1ML VIAL IM ONE (04:45)
[2024-04-02] MEDS ORDERED: DECADRON6 M1 PO (06:03)
[2024-04-02 06:07] VITALS: BP 122/80
== END 2024-04-02 06:15 | disposition home or self-care (01) ==
LOC: ER 01:51
DX: J02.9 Acute pharyngitis, unspecified (principal); R13.10 Dysphagia, unspecified; Z88.8 Allergy status to other drugs, medicaments and biological substances; Z88.6 Allergy status to analgesic agent; Z88.5 Allergy status to narcotic agent; Z79.899 Other long term (current) drug therapy; J45.909 Unspecified asthma, uncomplicated; Z87.891 Personal history of nicotine dependence
CPT/HCPCS: 87081; 87430; 94640; 94664; 96372; 99283-25; A9270; J1100

== ENCOUNTER 2024-09-16 19:54 | Emergency (ER) | payer OTHER ==
[~2024-09-16] VITALS: Ht 180.3 cm; Wt 93.9 kg
[~2024-09-16 19:54] MED LIST changes: +BUDESONIDE1 MG/2 M5 INH; +DECADRON6 M1 PO; +XYZAL5 MG PO
[2024-09-16 20:24] LABS: BASOPHILS ABSOLUTE AUTO 0.07 K/mm3 (0.00-0.23); BASOPHILS PERCENT AUTO 1 % (0-2); EOSINOPHILS ABSOLUTE AUTO 1.02 K/mm3 (0.00-0.68); EOSINOPHILS PERCENT AUTO 12 % (0-6); Hematocrit 37.7 % (33.0-51.0); Hemoglobin 12.2 g/dL (11.5-16.0); IMMATURE GRAN ABSOLUTE AUTO 0.02 K/mm3 (0.00-0.10); IMMATURE GRAN PERCENT AUTO 0 % (0-1); LYMPHOCYTES ABSOLUTE AUTO 3.15 K/mm3 (0.84-5.20); LYMPHOCYTES PERCENT AUTO 37 % (21-46); MONOCYTES ABSOLUTE AUTO 0.46 K/mm3 (0.16-1.47); MONOCYTES PERCENT AUTO 5 % (4-13); Mean Corpuscular HGB 26.4 pg (26.0-34.0); Mean Corpuscular HGB Conc 32.4 g/dL (31.5-36.5); Mean Corpuscular Volume 82 fL (80-100); Mean Platelet Volume 9.3 fL (9.1-12.4); NEUTROPHILS ABSOLUTE AUTO 3.91 K/mm3 (1.96-9.15); NEUTROPHILS PERCENT AUTO 45 % (41-73); Platelet Count 368 K/mm3 (150-400); RDW Coefficient Variation 15.5 % (11.7-14.2); RDW Standard Deviation 45.7 fL (35.1-46.3); Red Blood Cell Count 4.62 M/mm3 (3.80-5.20); White Blood Cell Count 8.63 K/mm3 (4.00-11.30)
[2024-09-16 20:49] LABS: Albumin, Blood 3.4 g/dL (3.4-5.0); Albumin/Globulin Ratio 0.9 (0.8-1.8); Bilirubin, Total 0.2 mg/dL (0.1-1.0); Bun/Creatinine Ratio 10.5 (12.0-20.0); Calcium, Blood 8.7 mg/dL (8.5-10.1); Creatinine, Blood 0.95 mg/dL (0.40-1.00); Globulin, Blood 3.9 g/dL (2.2-4.0); Potassium, Blood 3.8 mmol/L (3.5-5.5); Total Protein, Blood 7.3 g/dL (6.4-8.2)
[2024-09-16 23:13] VITALS: BP 109/79
== END 2024-09-16 23:33 | disposition home or self-care (01) ==
LOC: ER 19:54
PROVIDERS: Student in an Organized Health Care Education/Training Program
DX: R00.2 Palpitations (principal); Z87.891 Personal history of nicotine dependence; Z79.51 Long term (current) use of inhaled steroids; Z79.899 Other long term (current) drug therapy; Z88.6 Allergy status to analgesic agent; Z88.5 Allergy status to narcotic agent; Z88.8 Allergy status to other drugs, medicaments and biological substances
CPT/HCPCS: 71046; 80053; 84484; 85025; 93005; 93010; 99285-25

== ENCOUNTER → 2024-10-17 | Outpatient (CLI) | payer OTHER | END | disposition home or self-care (01) | LOC: LAB SHORT 07:38 → PLD 07:38 | DX: D49.2 Neoplasm of unspecified behavior of bone, soft tissue, and skin (principal) | CPT/HCPCS: 88304 ==

== ENCOUNTER → 2024-11-02 | Outpatient (CLI) | payer OTHER | LOC: LAB SHORT 17:17 → LAB 17:17 | DX: N39.0 Urinary tract infection, site not specified (principal) | CPT/HCPCS: 87086 ==

== ENCOUNTER 2024-11-16 20:45 | Emergency (ER) | payer OTHER ==
[~2024-11-16] VITALS: Ht 177.8 cm; Wt 95.2 kg
[2024-11-17 00:09] VITALS: BP 119/83
== END 2024-11-17 00:09 | disposition home or self-care (01) ==
LOC: ER 20:45
DX: M54.50 Low back pain, unspecified (principal); J45.909 Unspecified asthma, uncomplicated; Z88.6 Allergy status to analgesic agent; Z88.5 Allergy status to narcotic agent; Z88.8 Allergy status to other drugs, medicaments and biological substances; Z79.899 Other long term (current) drug therapy
CPT/HCPCS: 72100; 99283-25

== ENCOUNTER 2025-02-08 22:25 | Emergency (ER) | payer OTHER ==
[~2025-02-08] VITALS: Ht 180.3 cm; Wt 90.7 kg
[2025-02-08 22:52] VITALS: BP 138/89
[2025-02-08 23:23] LABS: BASOPHILS ABSOLUTE AUTO 0.06 K/mm3 (0.00-0.23); BASOPHILS PERCENT AUTO 1 % (0-2); EOSINOPHILS PERCENT AUTO 10 % (0-6); Hematocrit 36.1 % (33.0-51.0); Hemoglobin 11.5 g/dL (11.5-16.0); IMMATURE GRAN ABSOLUTE AUTO 0.02 K/mm3 (0.00-0.10); IMMATURE GRAN PERCENT AUTO 0 % (0-1); LYMPHOCYTES ABSOLUTE AUTO 2.98 K/mm3 (0.84-5.20); LYMPHOCYTES PERCENT AUTO 43 % (21-46); MONOCYTES ABSOLUTE AUTO 0.38 K/mm3 (0.16-1.47); MONOCYTES PERCENT AUTO 6 % (4-13); Mean Corpuscular HGB Conc 31.9 g/dL (31.5-36.5); Mean Corpuscular Volume 82 fL (80-100); Mean Platelet Volume 9.5 fL (9.1-12.4); NEUTROPHILS ABSOLUTE AUTO 2.78 K/mm3 (1.96-9.15); NEUTROPHILS PERCENT AUTO 40 % (41-73); Platelet Count 392 K/mm3 (150-400); RDW Coefficient Variation 15.7 % (11.7-14.2); RDW Standard Deviation 46.8 fL (35.1-46.3); Red Blood Cell Count 4.43 M/mm3 (3.80-5.20); White Blood Cell Count 6.92 K/mm3 (4.00-11.30)
[2025-02-08 23:41] LABS: Albumin, Blood 3.3 g/dL (3.4-5.0); Albumin/Globulin Ratio 0.8 (0.8-1.8); Bilirubin, Total 0.1 mg/dL (0.1-1.0); Bun/Creatinine Ratio 14.8 (12.0-20.0); Calcium, Blood 8.2 mg/dL (8.5-10.1); Creatinine, Blood 0.81 mg/dL (0.40-1.00); Potassium, Blood 4.3 mmol/L (3.5-5.5); Total Protein, Blood 7.3 g/dL (6.4-8.2)
[2025-02-09 00:40] LABS: Source, Urine Clean Catch
[2025-02-09 00:54] LABS: Appearance, Urine Turbid (Clear); Bilirubin, Urine Neg (Neg); Blood, Urine 1+ (Neg); Color, Urine Yellow (P-Yellow); Glucose Qualitative, Urine Neg (Neg); Ketones, Urine Neg (Neg); Leukocyte Esterase, Urine Neg (Neg); Nitrite, Urine Neg (Neg); Protein, Urine 1+ (Neg); Urobilinogen, Urine NORM (Normal); pH, Urine 6.5 (5.0-8.0)
[2025-02-09 01:01] LABS: Amorphous Heavy (0-Heavy); Bacteria Few /hpf; Red Blood Cells, Urine 0-2 /hpf (0-2); Squamous Epithelial Cells Few /hpf (Few); White Blood Cells, Urine 0-2 /hpf (0-5)
[2025-02-09] MEDS ORDERED: Ondansetron Odt8 MG MM (02:04)
[2025-02-09] MEDS ORDERED: Acetaminophen 500 MG Tab PO ONE (02:05)
== END 2025-02-09 02:29 | disposition home or self-care (01) ==
LOC: ER 22:25
PROVIDERS: Student in an Organized Health Care Education/Training Program
DX: K80.20 Calculus of gallbladder without cholecystitis without obstruction (principal); J45.909 Unspecified asthma, uncomplicated; Z87.891 Personal history of nicotine dependence; Z88.8 Allergy status to other drugs, medicaments and biological substances; Z88.6 Allergy status to analgesic agent; Z88.5 Allergy status to narcotic agent; Z79.51 Long term (current) use of inhaled steroids; Z79.899 Other long term (current) drug therapy
CPT/HCPCS: 74177; 80053; 81001; 81025; 83605; 83690; 85025; 99284-25; A9270; Q9967

== ENCOUNTER 2025-05-31 22:21 | Emergency (ER) | payer OTHER ==
[~2025-05-31] VITALS: Ht 177.8 cm; Wt 95.2 kg
[~2025-05-31 22:21] MED LIST changes: +Ondansetron Odt8 MG MM
[2025-05-31 23:12] LABS: Alanine Aminotransfer (ALT/SGP 21.0 U/L (12-78); Albumin, Blood 3.6 g/dL (3.4-5.0); Albumin/Globulin Ratio 0.9 (0.8-1.8); Anion Gap 9.0 mmol/L (3-11); Aspartate Aminotrans (AST/SGOT 19.0 U/L (12-37); Bilirubin, Total 0.2 mg/dL (0.1-1.0); Blood Urea Nitrogen 11.0 mg/dL (8-24); CO2, Blood 25.0 mmol/L (21-32); Calcium, Blood 8.5 mg/dL (8.5-10.1); Chloride, Blood 105.0 mmol/L (98-108); Creatinine, Blood 0.96 mg/dL (0.40-1.00); Globulin, Blood 4.0 g/dL (2.2-4.0); Glucose, Blood 126.0 mg/dL (70-99); Potassium, Blood 4.2 mmol/L (3.5-5.5); Sodium, Blood 135.0 mmol/L (136-145); Total Protein, Blood 7.6 g/dL (6.4-8.2)
[2025-05-31 23:25] LABS: BASOPHILS ABSOLUTE AUTO 0.03 K/mm3 (0.00-0.23); BASOPHILS PERCENT AUTO 1 % (0-2); EOSINOPHILS ABSOLUTE AUTO 0.14 K/mm3 (0.00-0.68); EOSINOPHILS PERCENT AUTO 3 % (0-6); Hematocrit 40.7 % (33.0-51.0); Hemoglobin 13.2 g/dL (11.5-16.0); IMMATURE GRAN ABSOLUTE AUTO 0.01 K/mm3 (0.00-0.10); IMMATURE GRAN PERCENT AUTO 0 % (0-1); LYMPHOCYTES ABSOLUTE AUTO 1.70 K/mm3 (0.84-5.20); LYMPHOCYTES PERCENT AUTO 32 % (21-46); MONOCYTES ABSOLUTE AUTO 0.45 K/mm3 (0.16-1.47); MONOCYTES PERCENT AUTO 9 % (4-13); Mean Corpuscular HGB Conc 32.4 g/dL (31.5-36.5); Mean Corpuscular Volume 80 fL (80-100); NEUTROPHILS ABSOLUTE AUTO 2.93 K/mm3 (1.96-9.15); NEUTROPHILS PERCENT AUTO 56 % (41-73); NRBC ABSOLUTE 0.00 K/mm3 (0.00-0.02); NRBC Auto 0.0 /100 WBC (0.0-0.2); Platelet Count 337 K/mm3 (150-400); RDW Coefficient Variation 16.0 % (11.7-14.2); RDW Standard Deviation 45.9 fL (35.1-46.3)
[2025-05-31 23:40] LABS: Influenza A, PCR NEGATIVE (NEGATIVE); Influenza B, PCR NEGATIVE (NEGATIVE); Resp Syncytial Virus, PCR NEGATIVE (NEGATIVE)
[2025-06-01 00:01] LABS: SARS-Cov-2 (COVID-19) PCR, MMC POSITIVE (NEGATIVE)
[2025-06-01] MEDS ORDERED: ALBU90OI INH (00:14)
[2025-06-01] MEDS ORDERED: Albuterol 2.5 MG/3 ML VIAL INH ONE (00:15)
[2025-06-01 01:00] VITALS: BP 136/82
== END 2025-06-01 01:11 | disposition home or self-care (01) ==
LOC: ER 22:21
PROVIDERS: Student in an Organized Health Care Education/Training Program
DX: U07.1 COVID-19 (principal); J45.901 Unspecified asthma with (acute) exacerbation; Z87.891 Personal history of nicotine dependence; Z88.8 Allergy status to other drugs, medicaments and biological substances; Z88.6 Allergy status to analgesic agent; Z88.5 Allergy status to narcotic agent; Z79.51 Long term (current) use of inhaled steroids; Z79.899 Other long term (current) drug therapy
CPT/HCPCS: 71046; 80053; 84484; 85025; 87637; 93005; 93010; 99285-25

== ENCOUNTER 2025-06-03 21:26 | Emergency (ER) | payer OTHER ==
[~2025-06-03] VITALS: Ht 177.8 cm; Wt 97.1 kg
[2025-06-03] MEDS ORDERED: Albuterol 2.5 MG/3 ML VIAL INH SCH (22:00)
[2025-06-03 22:31] LABS: BASOPHILS ABSOLUTE AUTO 0.03 K/mm3 (0.00-0.23); BASOPHILS PERCENT AUTO 0 % (0-2); EOSINOPHILS ABSOLUTE AUTO 0.52 K/mm3 (0.00-0.68); EOSINOPHILS PERCENT AUTO 8 % (0-6); Hematocrit 37.3 % (33.0-51.0); Hemoglobin 12.1 g/dL (11.5-16.0); IMMATURE GRAN ABSOLUTE AUTO 0.01 K/mm3 (0.00-0.10); IMMATURE GRAN PERCENT AUTO 0 % (0-1); LYMPHOCYTES ABSOLUTE AUTO 3.05 K/mm3 (0.84-5.20); LYMPHOCYTES PERCENT AUTO 44 % (21-46); MONOCYTES ABSOLUTE AUTO 0.32 K/mm3 (0.16-1.47); MONOCYTES PERCENT AUTO 5 % (4-13); Mean Corpuscular HGB Conc 32.4 g/dL (31.5-36.5); Mean Corpuscular Volume 79 fL (80-100); NEUTROPHILS ABSOLUTE AUTO 2.96 K/mm3 (1.96-9.15); NEUTROPHILS PERCENT AUTO 43 % (41-73); NRBC ABSOLUTE 0.00 K/mm3 (0.00-0.02); NRBC Auto 0.0 /100 WBC (0.0-0.2); Platelet Count 288 K/mm3 (150-400); RDW Coefficient Variation 15.3 % (11.7-14.2); RDW Standard Deviation 44.1 fL (35.1-46.3)
[2025-06-03 23:01] LABS: Alanine Aminotransfer (ALT/SGP 18 U/L (12-78); Albumin, Blood 3.4 g/dL (3.4-5.0); Albumin/Globulin Ratio 0.8 (0.8-1.8); Anion Gap 7 mmol/L (3-11); Aspartate Aminotrans (AST/SGOT 14 U/L (12-37); Bilirubin, Total <0.1 mg/dL (0.1-1.0); Blood Urea Nitrogen 8 mg/dL (8-24); CO2, Blood 28 mmol/L (21-32); Calcium, Blood 8.5 mg/dL (8.5-10.1); Chloride, Blood 108 mmol/L (98-108); Creatinine, Blood 0.74 mg/dL (0.40-1.00); Globulin, Blood 4.0 g/dL (2.2-4.0); Glucose, Blood 111 mg/dL (70-99); Potassium, Blood 3.5 mmol/L (3.5-5.5); Sodium, Blood 139 mmol/L (136-145); Total Protein, Blood 7.4 g/dL (6.4-8.2)
[2025-06-04 00:30] VITALS: BP 120/91
== END 2025-06-04 00:30 | disposition home or self-care (01) ==
LOC: ER 21:26
PROVIDERS: Emergency Medicine
DX: U07.1 COVID-19 (principal); Z79.899 Other long term (current) drug therapy; J45.909 Unspecified asthma, uncomplicated; Z87.891 Personal history of nicotine dependence; Z88.8 Allergy status to other drugs, medicaments and biological substances; Z88.5 Allergy status to narcotic agent
CPT/HCPCS: 71045; 80053; 83880; 84484; 85025; 85379; 93005; 93010; 99285-25; A9270; J7512

== ENCOUNTER 2025-06-09 00:01 | Emergency (ER) | payer OTHER ==
[~2025-06-09] VITALS: Ht 177.8 cm; Wt 89.8 kg
[2025-06-09] MEDS ORDERED: Albuterol 2.5 MG/3 ML VIAL INH SCH (00:40)
[2025-06-09] MEDS ORDERED: RX Prepack Albuterol 1 PREPACK/6.7 GM INH UD ONE (01:30)
[2025-06-09 01:42] VITALS: BP 118/68
== END 2025-06-09 01:53 | disposition home or self-care (01) ==
LOC: ER 00:01
DX: J45.901 Unspecified asthma with (acute) exacerbation (principal); Z79.899 Other long term (current) drug therapy; Z88.8 Allergy status to other drugs, medicaments and biological substances; Z87.891 Personal history of nicotine dependence
CPT/HCPCS: 71045; 99283-25; A9270

== ENCOUNTER 2025-06-10 21:44 | Emergency (ER) | payer OTHER ==
[~2025-06-10] VITALS: Ht 177.8 cm; Wt 89.8 kg
[2025-06-10 22:54] LABS: BASOPHILS ABSOLUTE AUTO 0.06 K/mm3 (0.00-0.23); BASOPHILS PERCENT AUTO 1 % (0-2); EOSINOPHILS ABSOLUTE AUTO 0.87 K/mm3 (0.00-0.68); EOSINOPHILS PERCENT AUTO 10 % (0-6); Hematocrit 35.2 % (33.0-51.0); Hemoglobin 11.5 g/dL (11.5-16.0); IMMATURE GRAN ABSOLUTE AUTO 0.02 K/mm3 (0.00-0.10); IMMATURE GRAN PERCENT AUTO 0 % (0-1); LYMPHOCYTES ABSOLUTE AUTO 3.18 K/mm3 (0.84-5.20); LYMPHOCYTES PERCENT AUTO 35 % (21-46); MONOCYTES ABSOLUTE AUTO 0.71 K/mm3 (0.16-1.47); MONOCYTES PERCENT AUTO 8 % (4-13); Mean Corpuscular HGB Conc 32.7 g/dL (31.5-36.5); Mean Corpuscular Volume 78 fL (80-100); NEUTROPHILS ABSOLUTE AUTO 4.21 K/mm3 (1.96-9.15); NEUTROPHILS PERCENT AUTO 47 % (41-73); NRBC ABSOLUTE 0.00 K/mm3 (0.00-0.02); NRBC Auto 0.0 /100 WBC (0.0-0.2); Platelet Count 428 K/mm3 (150-400); RDW Coefficient Variation 15.5 % (11.7-14.2); RDW Standard Deviation 43.8 fL (35.1-46.3)
[2025-06-10 23:08] LABS: Alanine Aminotransfer (ALT/SGP 23.0 U/L (12-78); Albumin, Blood 3.6 g/dL (3.4-5.0); Albumin/Globulin Ratio 1.0 (0.8-1.8); Anion Gap 7.0 mmol/L (3-11); Aspartate Aminotrans (AST/SGOT 16.0 U/L (12-37); Bilirubin, Total 0.1 mg/dL (0.1-1.0); Blood Urea Nitrogen 14.0 mg/dL (8-24); CO2, Blood 26.0 mmol/L (21-32); Calcium, Blood 8.6 mg/dL (8.5-10.1); Chloride, Blood 110.0 mmol/L (98-108); Creatinine, Blood 1.0 mg/dL (0.40-1.00); Globulin, Blood 3.6 g/dL (2.2-4.0); Glucose, Blood 100.0 mg/dL (70-99); Potassium, Blood 3.9 mmol/L (3.5-5.5); Sodium, Blood 139.0 mmol/L (136-145); Total Protein, Blood 7.2 g/dL (6.4-8.2)
[2025-06-11] MEDS ORDERED: Ipratropium/Albuterol SulF 2.5-0.5MG/3 ML Amp INH ONE (00:15)
[2025-06-11 00:32] LABS: pH Blood Venous 7.44 (7.34-7.37)
[2025-06-11] MEDS ORDERED: Albuterol 2.5 MG/3 ML VIAL INH ONE (02:00)
[2025-06-11] MEDS ORDERED: METPRE4DP PO (02:56)
[2025-06-11 03:15] VITALS: BP 112/74
== END 2025-06-11 03:19 | disposition home or self-care (01) ==
LOC: ER 21:44
PROVIDERS: Student in an Organized Health Care Education/Training Program
DX: J45.901 Unspecified asthma with (acute) exacerbation (principal); Z87.891 Personal history of nicotine dependence; Z79.51 Long term (current) use of inhaled steroids; Z79.899 Other long term (current) drug therapy; Z88.6 Allergy status to analgesic agent; Z88.5 Allergy status to narcotic agent; Z88.8 Allergy status to other drugs, medicaments and biological substances
CPT/HCPCS: 71046; 80053; 82803; 85025; 93005; 93010; 96374; 99285-25; J2919

== ENCOUNTER 2025-08-21 21:41 | Emergency (ER) | payer OTHER ==
[~2025-08-21] VITALS: Ht 180.3 cm; Wt 89.8 kg
[~2025-08-21 21:41] MED LIST changes: +METPRE4DP PO
[2025-08-21] MEDS ORDERED: Magnesium Sulf 2 GM/Water 50ML 50 ML IV ONE (21:50)
[2025-08-21] MEDS ORDERED: Albuterol 2.5 MG/3 ML VIAL INH SCH ×2 (21:50→23:35)
[2025-08-21] MEDS ORDERED: Dexamethasone Sod Phos 10 MG/ML 1ML VIAL IV ONE (21:50)
[2025-08-21 22:21] LABS: BASOPHILS ABSOLUTE AUTO 0.02 K/mm3 (0.00-0.23); BASOPHILS PERCENT AUTO 0 % (0-2); EOSINOPHILS ABSOLUTE AUTO 0.01 K/mm3 (0.00-0.68); EOSINOPHILS PERCENT AUTO 0 % (0-6); Hematocrit 39.6 % (33.0-51.0); Hemoglobin 12.7 g/dL (11.5-16.0); IMMATURE GRAN ABSOLUTE AUTO 0.01 K/mm3 (0.00-0.10); IMMATURE GRAN PERCENT AUTO 0 % (0-1); LYMPHOCYTES ABSOLUTE AUTO 0.88 K/mm3 (0.84-5.20); LYMPHOCYTES PERCENT AUTO 18 % (21-46); MONOCYTES ABSOLUTE AUTO 0.19 K/mm3 (0.16-1.47); MONOCYTES PERCENT AUTO 4 % (4-13); Mean Corpuscular HGB Conc 32.1 g/dL (31.5-36.5); Mean Corpuscular Volume 80 fL (80-100); NEUTROPHILS ABSOLUTE AUTO 3.79 K/mm3 (1.96-9.15); NEUTROPHILS PERCENT AUTO 77 % (41-73); NRBC ABSOLUTE 0.00 K/mm3 (0.00-0.02); NRBC Auto 0.0 /100 WBC (0.0-0.2); Platelet Count 439 K/mm3 (150-400); RDW Coefficient Variation 15.3 % (11.7-14.2); RDW Standard Deviation 44.0 fL (35.1-46.3)
[2025-08-21 22:43] LABS: Alanine Aminotransfer (ALT/SGP 15.0 U/L (12-78); Albumin, Blood 3.7 g/dL (3.4-5.0); Albumin/Globulin Ratio 0.8 (0.8-1.8); Anion Gap 10.0 mmol/L (3-11); Aspartate Aminotrans (AST/SGOT 11.0 U/L (12-37); Bilirubin, Total 0.1 mg/dL (0.1-1.0); Blood Urea Nitrogen 9.0 mg/dL (8-24); CO2, Blood 26.0 mmol/L (21-32); Calcium, Blood 9.3 mg/dL (8.5-10.1); Chloride, Blood 104.0 mmol/L (98-108); Creatinine, Blood 0.73 mg/dL (0.40-1.00); Globulin, Blood 4.6 g/dL (2.2-4.0); Glucose, Blood 186.0 mg/dL (70-99); Potassium, Blood 3.8 mmol/L (3.5-5.5); Sodium, Blood 136.0 mmol/L (136-145); Total Protein, Blood 8.3 g/dL (6.4-8.2)
[2025-08-21] MEDS ORDERED: NS 1,000 ML IV SCH (23:35)
[2025-08-22 00:15] VITALS: BP 129/78
== END 2025-08-22 01:58 | disposition home or self-care (01) ==
LOC: ER 21:41
PROVIDERS: Student in an Organized Health Care Education/Training Program
DX: J45.901 Unspecified asthma with (acute) exacerbation (principal); Z88.1 Allergy status to other antibiotic agents; Z88.6 Allergy status to analgesic agent; Z88.5 Allergy status to narcotic agent; Z88.8 Allergy status to other drugs, medicaments and biological substances; Z79.899 Other long term (current) drug therapy
CPT/HCPCS: 71046; 80053; 85025; 85379; 96365; 96375; 99285-25; J1100; J3475; J7030